=== PATIENT | female | born 1955 | race Caucasian/White ===

== ENCOUNTER → 2018-08-26 | Outpatient (CLI) | payer BC, SELFPAY ==
[2018-08-26 09:09] VITALS: BMI 28.4
[2018-08-28 15:44] LABS: HPV APTIMA, High Risk Negative (Negative)
== END | disposition home or self-care (01) ==
LOC: LABSPEC 12:41
PROVIDERS: Referring Provider Nurse Practitioner Women's Health; Visit Provider Nurse Practitioner Women's Health
DX: N95.2 Postmenopausal atrophic vaginitis (principal)
CPT/HCPCS: 87070; 87205; 87624; 88175; G0145

== ENCOUNTER → 2018-08-29 13:38 | Outpatient (CLI) | payer BC, SELFPAY ==
[2018-08-26 09:09] VITALS: BMI 28.4
--- NOTE | 2018-08-29 13:43 | US_ITS ---
STUDY: ULTRASOUND-PELVIS COMPLETE CLINICAL: Female, 63 years old. Vaginal pain and dryness TECHNIQUE: Transabdominal imaging initially performed with subsequent endovaginal imaging due to incomplete visualization of the endometrial complex and right ovary. COMPARISON: None. FINDINGS: Normal uterine size measuring 7.1 x 4.4 x 4.5 cm in maximal craniocaudal dimension. 7 mm hyperechoic lesion of the upper uterine myometrium compatible with a small fibroid. Normal endometrial thickness measuring 8 mm. Subtle rounded area of slight hyperechogenicity of the uterine fundal endometrial complex measures 4.4 mm. Normal uterine cervix. Right ovary is not visualized. Normal left ovary, measuring 1.4 x 1.3 x 1.2 cm. There are multiple follicles without a dominant cyst. There is no free fluid in the pelvis. Polycystic ovary disease: No. US/Transvaginal Non- IMPRESSION: 1. Endometrial thickening for patient age. Possible 4 mm endometrial hyperechoic lesion. Endometrial sampling is suggested. 2. Subcentimeter uterine fibroid. 3. Nonvisualized right ovary. Electronically Signed: Lucas Rubi MD at 14:03 EDT , Service support ,
--- NOTE | 2018-08-29 13:43 | US_ITS ---
STUDY: ULTRASOUND-PELVIS COMPLETE CLINICAL: Female, 63 years old. Vaginal pain and dryness TECHNIQUE: Transabdominal imaging initially performed with subsequent endovaginal imaging due to incomplete visualization of the endometrial complex and right ovary. COMPARISON: None. FINDINGS: Normal uterine size measuring 7.1 x 4.4 x 4.5 cm in maximal craniocaudal dimension. 7 mm hyperechoic lesion of the upper uterine myometrium compatible with a small fibroid. Normal endometrial thickness measuring 8 mm. Subtle rounded area of slight hyperechogenicity of the uterine fundal endometrial complex measures 4.4 mm. Normal uterine cervix. Right ovary is not visualized. Normal left ovary, measuring 1.4 x 1.3 x 1.2 cm. There are multiple follicles without a dominant cyst. There is no free fluid in the pelvis. Polycystic ovary disease: No. US/Pelvic (Non ) IMPRESSION: 1. Endometrial thickening for patient age. Possible 4 mm endometrial hyperechoic lesion. Endometrial sampling is suggested. 2. Subcentimeter uterine fibroid. 3. Nonvisualized right ovary. Electronically Signed: Lucas Rubi MD at 14:03 EDT , Service support ,
== END ==
PROVIDERS: Referring Provider Nurse Practitioner Women's Health; Visit Provider Nurse Practitioner Women's Health
DX: R10.2 Pelvic and perineal pain (principal)
CPT/HCPCS: 76830; 76856; 93976

== ENCOUNTER → 2018-09-23 | Outpatient (CLI) | payer BC, SELFPAY ==
[2018-09-23 09:34] VITALS: BMI 28.3
--- NOTE | 2018-09-23 13:08 | EMB_PTH ---
PATIENT: VONDA HUMMEL LOC: [facility] #:[id number] AGE/SX: 63/F ROOM: RE09/23/[address]: JERAMIE Stover : 1955 BED: DIS: 09/23/2018 SPEC #: [id number] RECD: 09/23/18 13:08 STATUS: MARGIE RAUL #: [id number] GABE: 09/23/18 13:[address]: Liyah Genao NP DEPT: SURGICAL PATHOLOGY RECD BY: Michael Hunter ENTERED: 09/23/18 14:04 SP TYPE: ENDOM BX/C SYLVESTER DR: No Primary Care Phys Tissues: Endometrium, NOS Procedures: Surgery Specimen Level IV HEADER OPERATION: Endometrial biopsy PRE-OP DIAGNOSIS: Atrophic vaginitis TISSUE SUBMITTED: Endometrial biopsy MICROSCOPIC DIAGNOSIS Endometrial biopsy: Strips of benign endometrial epithelium, consistent with atrophic endometrium. A fragment of benign endometrial polyp with cystic atrophic changes and focal minimal simple cystic endometrial hyperplasia without atypia. VERNA:orly 09/24/18 MICROSCOPIC DESCRIPTION Slides are reviewed. GROSS DESCRIPTION Received is one container labeled with the patient's name and not further designated. The specimen consists of multiple irregular fragments of mi mucoid tissue that in aggregate measure 2.5 x 1 x 0.1 cm. The specimen is totally submitted in one cassette. / VERNA:orly 09/23/18 TC:5 CPT: 80604
== END | disposition home or self-care (01) ==
LOC: LABSPEC 13:22
PROVIDERS: Referring Provider Nurse Practitioner Women's Health; Visit Provider Nurse Practitioner Women's Health
DX: N84.0 Polyp of corpus uteri (principal); N95.2 Postmenopausal atrophic vaginitis
CPT/HCPCS: 88305

== ENCOUNTER → 2018-09-29 | Outpatient (CLI) | payer BC, SELFPAY ==
[2018-08-26 09:09] VITALS: BMI 28.4
[2018-09-23 09:34] VITALS: BMI 28.3
--- NOTE | 2018-09-29 10:07 | BI_ITS ---
MAMMOGRAPHY - BILATERAL SCREENING REASON FOR EXAM: Female, 63 years old. Routine annual screening examination. PERTINENT HISTORY: Daughter with breast cancer. TECHNIQUE: Digital bilateral breast olivia (3D mammographic acquisition) in the CC and MLO projections. 2-D mediolateral oblique (MLO) and craniocaudad (CC) views of both breasts were obtained. CAD: Full Field Digital Mammography with Computer Added Detection was performed. COMPARISON: Comparison is made with prior X examination dated March 17, 2012. FINDINGS: Breast Composition: The breasts are heterogeneously dense, which may obscure small masses. There are no dominant masses or suspicious calcifications. No other significant abnormalities are identified. There has been no significant change since the prior study. BI/SCREEN MAMM (CAD) W/OLIVIA BILAT IMPRESSION: Stable bilateral screening mammogram. Yearly follow-up mammogram recommended. (A) ASSESSMENT CATEGORY: BIRADS Category 1: Negative. A letter regarding these results will be sent to the patient by the facility within 30 days. Approximately 10% of breast cancers are not detected by mammography. A normal mammogram should not delay biopsy of a clinically suspicious abnormality. [id number] Electronically Signed: Ranjeet Mg, at 8:22 EDT , Service support ,
== END | disposition home or self-care (01) ==
LOC: OPBI 10:06
PROVIDERS: Referring Provider Nurse Practitioner Women's Health; Visit Provider Nurse Practitioner Women's Health
DX: Z12.31 Encounter for screening mammogram for malignant neoplasm of breast (principal)
CPT/HCPCS: 77063; 77067

== ENCOUNTER → 2018-10-06 | Outpatient (CLI) | payer BC, SELFPAY ==
[2018-10-06 08:08] VITALS: BMI 28.3
[2018-10-06 09:47] LABS: Absolute Lymphocyte Count 1.45 X10^3/ul (0.83-4.51); Absolute Neutrophil Count 2.1 X10^3/uL (2.0-7.7); Basophil# 0.01 X10^3/uL; Basophil% 0.3 % (0-1); Eosinophil# 0.05 X10^3/uL; Eosinophils% 1.3 % (0-5); Hematocrit 41.6 % (37-47); Hemoglobin 13.9 g/dl (12.0-15.0); Lymphocyte # 1.45 X10^3/ul (4.0); Lymphocyte % 38.3 % (19-41); Mean Corp Hgb Conc 33.4 g/gl (32-36); Mean Corpuscular Hgb 29.3 pg (27.0-32.0); Mean Corpuscular Volume 87.8 fL (81-99); Mean Platelet Vol. 9.7 fl (6.2-12.0); Monocyte# 0.21 X10^3/uL; Monocyte% 5.5 % (0-10); Neutrophil # 2.07 X10^3/uL (2.7-7.7); Neutrophil % 54.6 % (47-70); Platelet Count 222 K/mm3 (150-450); RBC Distribution Width CV 13.7 % (11.6-14.6); RBC Distribution Width SD 43.1 fl (35.1-43.9); Red Blood Count 4.74 M/mm3 (4.2-5.4); White Blood Count 3.8 K/mm3 (4.4-11.0)
[2018-10-06 09:53] LABS: POSITIVE COUNT NO; POSITIVE DIFFERENTIAL NO; POSITIVE MORPHOLOGY NO
[2018-10-06 10:54] LABS: ALB/GLOB Ratio 1.1 RATIO (0.9-2.4); AST(SGOT) 29 U/L (15-37); Alanine Aminotransfer ALT/SGPT 34 U/L (13-56); Albumin, Serum 4.1 g/dL (3.2-5.0); Alkaline Phosphatase 62 U/L (45-117); Anion Gap 7 (5-15); BUN 14 mg/dL (7-18); BUN/Creat Ratio 17.4 RATIO (10-20); Calcium,Total 9.4 mg/dL (8.5-10.1); Chloride 110 mmol/L (98-107); EST Glomerular Filtration Rate 76 mL/min (>60); Est Glom Filt Rate - Afr Amer 92 mL/min (>60); Globulin 3.8 g/dL (2.2-4.2); Glucose 92 mg/dL (74-106); Potassium 3.9 mmol/L (3.5-5.1); Protein, Total 7.9 g/dL (6.4-8.2); Sodium Level 144 mmol/L (136-145)
== END | disposition home or self-care (01) ==
PROVIDERS: Visit Provider Obstetrics & Gynecology
DX: N85.01 Benign endometrial hyperplasia (principal)
CPT/HCPCS: 36415; 80053; 85025; 86850; 86900

== ENCOUNTER 2018-10-16 14:16 | Day surgery (SDC) | payer BC, SELFPAY ==
[2018-09-23 09:34] VITALS: BMI 28.3
[2018-10-06 08:08] VITALS: BMI 28.3
--- NOTE | 2018-10-14 20:28 | PCM.HPOB.BLA ---
- Problem List (1) Simple endometrial hyperplasia without atypia Status: Acute Comment: d and c hysteroscopy (2) Thickened endometrium Status: Acute (3) Cystocele and rectocele with incomplete uterovaginal prolapse Status: Acute (4) Urethral caruncle Status: Acute (5) Atrophic vaginitis Status: Acute History and Physical Date of Admission: 10/16/18 Vital Signs 10/06/18 Body Mass Index (BMI) 28.3 10/06/18 Height 5 ft 5 in 10/06/18 Weight: 173 lb 10/06/18 Body Mass Index (BMI) 28.8 10/06/18 Blood Pressure 132/82 H Intake Visit Reasons: D&C pre op Chief Complaint: pre op D&C Mass Spectrometry Specialist Required: No Is patient in pain?: No Allergies No Known Allergies Allergy (Verified 10/06/18 08:07) Medications adrenal supplement PO 08/26/18 [History Confirmed 10/06/18] cholecalciferol (vitamin D3) 2,000 unit capsule 2,000 unit PO DAILY 08/26/18 [History Confirmed 10/06/18] estradiol 0.01% (0.1 mg/gram) vaginal cream See Rx Instructions VAGINAL .COMPLEX #42.5 g 08/26/18 [Rx Confirmed 10/06/18] ibuprofen 200 mg capsule 200 mg PO TID-QID PRN 08/26/18 [History Confirmed 10/06/18] pyridoxine (vitamin B6) 50 mg capsule 50 mg PO DAILY 08/26/18 [History Confirmed 10/06/18] thyroid supplement PO 08/26/18 [History Confirmed 10/06/18] Is last menstrual period known: No Post menopausal: Yes Patient : No : No PFSH Surgical History vericose vein surgery (Acute) Family History Mother Hypertension Father CVA (cerebral vascular accident) Social History adopted: No number of children: 3 current occupational status: retired sexually active: Yes Smoking Status: Never smoker alcohol intake: current alcohol intake frequency: holidays/special occasions only substance use type: does not use well-balanced diet: daily or most days caffeine: Yes Type: coffee Number of servings: 1 what type of physical activity do you participate in: walking frequency: 3-4 times per week seatbelt use: always do you feel safe at home: Yes additional social history: HPI D&C pre op: Details: VONDA HUMMEL is a 63 year old who presents for preoperative visit. she has some pelvic prolapse and also had endometrial hyperplasia. Female Reproductive History Questions: Metorrhagia: No, Sexually active: Yes Pregancy History 4 Elective abortions 0 Hx Para 3 Spontaneous abortions 1 Hx # Term Pregnancies 3 Ectopic pregnancies 0 Hx # Pregnancies 0 Multiple births 0 # of living children 3 ROS Const Constitutional: Denies fatigue, fever(s), headache(s), increased appetite, poor appetite, weight gain or weight loss ENT ENT: Denies dizziness or dry mouth Cardio Card: Denies chest pain Resp Resp: Denies cough or dyspnea GI GI: Reports as per HPI; denies abdominal pain, constipation, nausea or vomiting : Reports as per HPI; denies difficulty urinating, painful urination, pelvic pain, urinary frequency, urinary incontinence, urinary hesitancy, urinary urgency, vaginal discharge, vaginal dryness, vaginal odor or vaginal itching Musc Musc: Denies joint pain, back pain or muscle weakness Skin Skin/Breast: Reports hair loss; denies change in hair, dry skin, breast lump, breast pain or breast skin changes Neuro Neuro: Denies dizziness Psych Psych: Denies anxiety or depression Endo Endo: Denies cold intolerance, excessive sweating, heat intolerance or increased thirst Sacha/Lymph Hematologic/Lymphatic: Denies easy bleeding, Denies easy bruising, Denies enlarged lymph nodes Exam Const General: cooperative, healthy appearing, comfortable, no acute distress, well developed Nutritional Appearance: average body habitus Orientation: alert [facility] Head: normal to inspection, normocephalic Ears: hearing grossly normal bilaterally, external ears normal Nose: external nose normal, nares normal Face and sinus: normal facial exam Neck Neck: normal visual inspection, no lymphadenopathy, trachea midline Thyroid: thyroid normal Chest Chest palpation & inspection: normal inspection of the chest Resp Effort & Inspection: normal respiratory effort Auscultation: clear to auscultation bilaterally Cardio Rate: regular rate Rhythm: regular rhythm Heart Sounds: S1 normal, S2 normal GI Inspection: normal to inspection, non-distended Palpation: soft, no hepatosplenomegaly Musc Cervical Spine: other Other: gross motor intact no deficits, full bilateral strength Skin General: no rashes or lesions noted Neuro General: alert, awake, moves all extremities, no focal motor deficits Motor: muscle tone normal throughout Extrem General: normal to inspection, no pedal edema Psych Appearance: grossly normal Mental Status: mental status grossly normal Affect: normal affect Speech and Movement: speech and movement normal Assessment & Plan Problems 1. Simple endometrial hyperplasia without atypia N85.01 d and c hysteroscopy 2. Cystocele and rectocele with incomplete uterovaginal prolapse N81.2 Plan discussed surgical risks including risks of anesthesia, infection, bleeding, injury to bowel, bladder or blood vessels, and patient wishes to proceed with surgery. Orders Orders: Type & Screen Today CBC W/Diff, Automated Today N85.01 Comprehensive Metabolic Profil Today N85.01 Coding Level of Care Code No Charge Diagnoses Simple endometrial hyperplasia without atypia N85.01 Cystocele and rectocele with incomplete uterovaginal prolapse N81.2 UPDATE- I have seen the patient and performed any clinically relevant updates to the history and physical exam. Veronika Forte MD
[2018-10-16] VITALS (7 sets, daily range): BP systolic 105–178; BP diastolic 60–90; PULSE 67–79; RESP 16; TEMP 36.3; O2SAT 95–99; BMI 29.2
--- NOTE | 2018-10-16 15:24 | EKG12_ITS ---
Test Reason : PRE-OPERATIVE Blood Pressure : / mmHG Vent. Rate : 064 BPM Atrial Rate : 064 BPM P-R Int : 130 ms QRS Dur : 094 ms QT Int : 446 ms P-R-T Axes : 058 006 050 degrees QTc Int : 460 ms Normal sinus rhythm Lateral infarct , age undetermined , cannot be excluded Abnormal ECG Confirmed by ALY SIEGEL, LINUS ([id number]), fan mail editor JESE ANGEL ([id number]) on 10/20/2018 3:13:06 PM Referred By: Veroniak Forte Confirmed By:LINUS LU MD
--- NOTE | 2018-10-16 16:10 | PCM.OPRPT ---
Problem List (1) Simple endometrial hyperplasia without atypia Status: Acute Comment: d and c hysteroscopy (2) Thickened endometrium Status: Acute (3) Cystocele and rectocele with incomplete uterovaginal prolapse Status: Acute (4) Urethral caruncle Status: Acute (5) Atrophic vaginitis Status: Acute Report of Operation Date of Procedure: 10/16/18 Pre-Operative Diagnosis: postmenopausal bleeding Post-Operative Diagnosis: same Surgery/Procedure Performed:: d and c hysteroscopy polypectomy Description of Surgical Findings:: two endometrial polyps Type of Anesthesia:: Local MAC Special Medications: none Specimen's removed: emc and polyps Drains: none Estimated Blood Loss (mL): none Fluids Replaced: crystalloid Description of Procedure: Patient was prepped and draped in a normal sterile fashion under MAC anesthesia. A weighted speculum was placed in the vagina and the anterior lip of the cervix was grasped with a single-tooth tenaculum. A paracervical block was placed with 1% lidocaine. Cervix was progressively dilated to allow passage of a 5 mm hysteroscope. The lining was fully visualized and noted to have 2 large endometrial polyps that were removed with polyp forceps. Uterine sounded to 9 cm. Curettage was performed and moderate amount of tissue was removed, sent to pathology. All instruments were removed from the vagina and excellent hemostasis was noted. Patient was awoken and taken to recovery in stable condition. Grafts/Implants Used: none - Complications none
--- NOTE | 2018-10-16 16:12 | DCINST_ITS ---
Discharge Diet: No Restrictions Discharge Activity: Return to Normal Activity, May Shower, May Take a Tub Bath Allergies/Adverse Reactions: Allergies No Known Allergies Allergy (Verified 10/08/18 15:45) Medications to take at Discharge adrenal supplement 1 tab PO DAILY 08/26/18 cholecalciferol (vitamin D3) 2,000 unit capsule 2,000 unit PO DAILY 08/26/18 pyridoxine (vitamin B6) 50 mg capsule 50 mg PO DAILY 08/26/18 thyroid supplement 1 tab PO DAILY 08/26/18 Primary Care Physician: Care Physician,No Primary [Primary Care Provider] - Test Results: Test results from this visit will be discussed in further detail at your follow- up appointment, if applicable. Please Follow Up With: Veronika Forte MD - [phone]
--- NOTE | 2018-10-16 16:25 | EMB_PTH ---
PATIENT: VONDA HUMMEL LOC: [facility] [place] U#:[id number] AGE/SX: 63/F ROOM: RE10/16/[address]: Dr. Veronika Forte MD : 1955 BED: DIS: 10/16/2018 SPEC #: [id number] RECD: 10/17/18 08:06 STATUS: MARGIE RAUL #: [id number] GABE: 10/16/18 16:[address]: Veronika Forte DEPT: SURGICAL PATHOLOGY RECD BY: Chase Franz ENTERED: 10/17/18 14:26 SP TYPE: ENDOM BX/C SYLVESTER DR: No Primary Care Phys Tissues: Endometrium, NOS Procedures: Surgery Specimen Level IV HEADER OPERATION: Hysteroscopy, dilation and curettage PRE-OP DIAGNOSIS: Postmenopausal bleeding TISSUE SUBMITTED: Endometrial curettings and polyp MICROSCOPIC DIAGNOSIS Endometrial curettings and polyp, biopsy: Polypoid fragments of benign endometrium with simple hyperplasia without atypia. AM:orly 10/20/18 MICROSCOPIC DESCRIPTION Slides are reviewed. GROSS DESCRIPTION Received in fixative is one container labeled with the patient's name and designated endometrial curettings and polyp. The specimen consists of multiple irregular fragments of light mi soft tissue that in aggregate measure 2.5 x 1.8 x 0.1 cm. The specimen is totally submitted in one cassette. / AM:orly 10/17/18 TC:5 CPT: 28559
== END 2018-10-16 17:10 | disposition home or self-care (01) ==
LOC: SDC 14:16 → AC 14:37
PROVIDERS: Referring Provider Obstetrics & Gynecology; Visit Provider Obstetrics & Gynecology
PROC: 0UDB8ZZ Extraction of Endometrium, Via Natural or Artificial Opening Endoscopic (ICD-10-PCS; CPT 58558; principal; 2018-10-16 16:15)
DX: N85.01 Benign endometrial hyperplasia (principal); N95.0 Postmenopausal bleeding; R94.31 Abnormal electrocardiogram [ECG] [EKG]; E07.9 Disorder of thyroid, unspecified; Z79.899 Other long term (current) drug therapy
CPT/HCPCS: 00952; 58558; 88305; 93005; J7120

== ENCOUNTER → 2019-05-05 08:01 | Outpatient (CLI) | payer BC, SELFPAY ==
[2019-05-05 09:16] VITALS: BMI 29.2
--- NOTE | 2019-05-05 16:30 | EMB_PTH ---
PATIENT: VONDA HUMMEL LOC: [facility] U#:[id number] AGE/SX: 70/F ROOM: RE05/05/[address]: JERAMIE Stover : 1955 BED: DIS: SPEC #: [id number] RECD: 05/05/19 17:35 STATUS: MARGIE RAUL #: [id number] GABE: 05/05/19 16:[address]: Liyah Genao NP DEPT: SURGICAL PATHOLOGY RECD BY: Michael Hunter ENTERED: 05/06/19 11:48 SP TYPE: ENDOM BX/C SYLVESTER DR: Светлана Primary Care Phys Tissues: Endometrium, NOS Procedures: Surgery Specimen Level IV HEADER OPERATION: Endometrial biopsy PRE-OP DIAGNOSIS: Abnormal uterine bleeding TISSUE SUBMITTED: Endometrial lining MICROSCOPIC DIAGNOSIS Endometrial biopsy: Strips of benign endometrial epithelium, consistent with atrophic endometrium. SJ:orly 05/07/19 MICROSCOPIC DESCRIPTION Slides are reviewed. GROSS DESCRIPTION Received is one container labeled with the patient's name and not further designated. The specimen consists of a scant amount of soft tissue. The specimen is totally submitted for cell block preparation. / SJ:orly 05/06/19 TC:4 CPT: [id number]
== END ==
PROVIDERS: Referring Provider Nurse Practitioner Women's Health; Visit Provider Nurse Practitioner Women's Health
DX: N93.9 Abnormal uterine and vaginal bleeding, unspecified (principal)
CPT/HCPCS: 88305

== ENCOUNTER → 2020-01-08 | Outpatient (CLI) | payer MEDICARE, SELFPAY ==
--- NOTE | 2020-01-08 13:00 | EMB_PTH ---
PATIENT: VONDA HUMMEL LOC: [facility] U#:[id number] AGE/SX: 64/F ROOM: RE01/08/[address]: Dr. Jessica Paulino MD : 1955 BED: DIS: 01/08/2020 SPEC #: [id number] RECD: 01/08/20 14:53 STATUS: MARGIE RERemberto #: [id number] GABE: 01/08/20 13:[address]: Jessica Paulino DEPT: SURGICAL PATHOLOGY RECD BY: Chase Franz ENTERED: 01/11/20 07:49 SP TYPE: ENDOM BX/C SYLVESTER DR: No Primary Care Phys Tissues: Endometrium, NOS Procedures: Surgery Specimen Level IV HEADER OPERATION: Endometrial biopsy PRE-OP DIAGNOSIS: Simple endometrial hyperplasia without atypia TISSUE SUBMITTED: Endometrial lining MICROSCOPIC DIAGNOSIS Endometrium, biopsy: Strips of benign superficial glandular mucosa. No evidence of hyperplasia. Fragment of endocervix with mild chronic inflammation. AM:orly 01/12/20 MICROSCOPIC DESCRIPTION Slides are reviewed. GROSS DESCRIPTION Received is one container labeled with the patient's name and not further designated. The specimen consists of multiple fragments of hemorrhagic soft tissue that in aggregate measure 0.5 x 0.5 x 0.1 cm. The specimen is totally submitted in one cassette. / SJ:orly 01/11/20 TC:5 CPT: 70470
[2020-01-08 13:02] VITALS: BMI 29.2
== END | disposition home or self-care (01) ==
LOC: LABSPEC 15:02
PROVIDERS: Referring Provider Obstetrics & Gynecology; Visit Provider Obstetrics & Gynecology
DX: N85.01 Benign endometrial hyperplasia (principal)
CPT/HCPCS: 88305

== ENCOUNTER → 2020-10-04 09:04 | Outpatient (CLI) | payer MEDICARE, SELFPAY ==
[2020-01-08 13:02] VITALS: BMI 29.2
--- NOTE | 2020-10-04 09:07 | BD_ITS ---
STUDY: DUAL ENERGY X-RAY ABSORPTIOMETRY / DXA REASON FOR EXAM: Female, 65 years old. Menopause TECHNIQUE: Bone Mineral Density (BMD) measurements of lumbar spine and bilateral hips were obtained. COMPARISON: None. FINDINGS: Lumbar Spine (L1-L4): g/cm2 (1.255) / T-score (0.6) / Z-score (2.2) Findings are suggestive of normal bone density with a low fracture risk. Left Femur Total: g/cm2 (1.109) / T-score (0.8) / Z-score (2.1) Left Femoral Neck: g/cm2 (0.928) / T-score (-0.8) / Z-score (0.7) Right Femur Total: g/cm2 (1.113) / T-score (0.8) / Z-score (2.1) Right Femoral Neck: g/cm2 (0.982) / T-score (-0.4) / Z-score (1.1) BD/Dexa Bone Density Study IMPRESSION: The patient is considered normal as outlined below according to World Anthony Organization (WHO) criteria with a low fracture risk. Reference Information: The T-score is the number of standard deviations above or below the standard which is normal for young adults at their peak bone mineral density. The World Health Organization (WHO) interprets the T-scores as follows: Above -1 Normal bone density Between -1 and -2.5 Osteopenia Equal to / or below -2.5 Osteoporosis As a practical clinical guideline, osteopenia may be graded as follows: Mild -1 through -1.5 Moderate -1.6 through -2.0 Severe -2.1 through -2.4 The Z-score is the number of standard deviations above or below age-matched controls. A Z-score of less than -1.5 would be considered abnormal. References: 1. NIH Osteoporosis and Related Bone Diseases www osteo.org 2. International Society for Clinical Densitometry www iscd.org 3. National Osteoporosis Foundation www nof.org Electronically Signed: Ranjeet Mg MD at 12:34 EDT , Service support ,
== END ==
PROVIDERS: PCP Internal Medicine; Referring Provider Obstetrics & Gynecology; Visit Provider Obstetrics & Gynecology
DX: Z78.0 Asymptomatic menopausal state (principal)
CPT/HCPCS: 77080

== ENCOUNTER → 2022-05-02 | Outpatient (CLI) | payer MEDICARE, SELFPAY ==
--- NOTE | 2022-05-02 13:13 | BI_ITS ---
MAMMOGRAPHY - BILATERAL SCREENING REASON FOR EXAM: Female, 67 years old. Routine annual screening examination. PERTINENT HISTORY: Daughter with breast cancer. TECHNIQUE: Digital bilateral breast olivia (3D mammographic acquisition) in the CC and MLO projections. 2-D mediolateral oblique (MLO) and craniocaudad (CC) views of both breasts were obtained. CAD: Full Field Digital Mammography with Computer Added Detection was performed. COMPARISON: Comparison is made with prior study dated 09/29/2018. FINDINGS: Breast Composition: The breasts are heterogeneously dense, which may obscure small masses. There are no dominant masses or suspicious calcifications. Stable scattered bilateral macrocalcifications. No focal clusters seen. No other significant abnormalities are identified. There has been no significant change since the prior study. BI/SCRN MAMM (CAD)W/OLIVIA BILAT IMPRESSION: Stable bilateral screening mammogram. Yearly follow-up mammogram recommended. (A) ASSESSMENT CATEGORY: BIRADS Category 2: Benign. A letter regarding these results will be sent to the patient by the facility within 30 days. Approximately 10% of breast cancers are not detected by mammography. A normal mammogram should not delay biopsy of a clinically suspicious abnormality. [id number] Electronically Signed: Ranjeet Mg MD at 14:53 EST ,
--- NOTE | 2022-05-02 13:13 | US_ITS ---
INDICATION: F/U HYPERP EXAMINATION: US Pelvis Non OB Complete With Transvaginal Imaging TECHNIQUE: Transabdominal and transvaginal pelvic ultrasound was performed. Grayscale, spectral waveform, and color flow Doppler evaluation of the adnexa. COMPARISON: 08/29/2018. FINDINGS: UTERUS: Anteverted. The uterus measures 7.1 x 4.6 x 3.5 cm. It is heterogneous, however, there is no uterine mass. The endometrial stripe measures 2.4 mm in AP diameter which is within normal limits for a postmenopausal woman. RIGHT OVARY: Not visualized. LEFT OVARY: Measures 2.4 x 2.1 x 1.4 cm. Non-enlarged, normal echogenicity. There is normal arterial inflow and venous outflow present in the left ovary. FREE FLUID: None. US/Pelvic (Non ) IMPRESSION: Nonvisualization of the right ovary. Otherwise normal left ovary and uterus with normal endometrial thickness. Electronically Signed: Gio Frye MD at 18:31 EST ,
== END | disposition home or self-care (01) ==
LOC: OPUS 13:10
PROVIDERS: Visit Provider Obstetrics & Gynecology
DX: Z12.31 Encounter for screening mammogram for malignant neoplasm of breast (principal); Z80.3 Family history of malignant neoplasm of breast
CPT/HCPCS: 76830; 76856; 77063; 77067

== ENCOUNTER → 2023-05-14 | Outpatient (CLI) | payer MEDICARE, SELFPAY ==
--- NOTE | 2023-05-14 13:07 | US_ITS ---
STUDY: ULTRASOUND OF THE FEMALE PELVIS - COMPLETE REASON FOR EXAM: Female, 68 years old. Abnormal bleeding LMP: Unknown. TECHNIQUE: Transabdominal and Transvaginal TECHNICAL QUALITY: Adequate. COMPARISON: 05/02/2022 FINDINGS: The uterus is anteverted and is in a midline position. The uterus measures 7.9 x 4.4 x 3.7 cm. Normal uterine cervix. The endometrium measures 3.7 mm in thickness, and is hyperechoic. There is a 1.0 x 0.8 x 0.6 cm likely endometrial polyp There is no demonstrated myometrial mass. I.U.D. - The patient does not have an I.U.D. The right ovary is visualized. The right ovary measures 1.9 x 1.0 x 0.9 cm. There is no right ovarian cyst or ovarian mass. There is no visualized right adnexal mass or complex lesion. There is normal arterial and normal venous vascularity. The left ovary is visualized. The left ovary measures 1.8 x 1.1 x 1.2 cm. There is no left ovarian cyst or ovarian mass. There is no visualized left adnexal mass or complex lesion. There is normal arterial and normal venous vascularity. There is no fluid in the cul-de-sac. The bladder distends normally with estimated capacity of 473. There is a 1.5 x 1.6 x 1.2 cm well-defined nodule in the posterior right bladder wall likely representing a small bladder polyp. Urologic consultation recommended US/Pelvic (Non ) IMPRESSION: Normal endometrial thickness, but there is evidence of a hyperechoic 1.0 cm likely endometrial polyp. No suspicious adnexal mass or free fluid Small well-defined 1.5 x 1.6 x 1.2 cm mass within the posterior right bladder not present on the previous study, likely a polyp but urologic consultation recommended, this needs further evaluation with direct visualization or with CT or MRI. Electronically Signed: Dustin Ross MD at 10:19 EST ,
--- NOTE | 2023-05-14 13:07 | BI_ITS ---
MAMMOGRAPHY - BILATERAL SCREENING 3-D TOMOSYNTHESIS REASON FOR EXAM: Female, 68 years old. Annual screening mammogram. PERTINENT HISTORY: History of breast cancer in daughter, age not identified. TECHNIQUE: 2-D mammograms and 3-D Tomosynthesis of the breast (s) were performed. CAD was performed. COMPARISON: May 02, 2022, September 29, 2018 FINDINGS: Heterogeneously dense fibroglandular tissue which may obscure small masses. Stable normal lymph nodes and scattered benign calcifications bilaterally. No dominant masses, suspicious microcalcifications, asymmetry, skin thickening or nipple retraction. BI/SCRN MAMM (CAD)W/OLIVIA BILAT IMPRESSION: No mammographic signs of malignancy. Yearly follow-up bilateral screening mammogram recommended. ASSESSMENT CATEGORY: BIRADS Category 2: Benign. A letter regarding these results will be sent to the patient by the facility within 30 days. FOLLOW UP RECOMMENDATION: Yearly follow up mammogram recommended. (A) Approximately 10% of breast cancers are not detected by mammography. A normal mammogram should not delay biopsy of a clinically suspicious abnormality. Electronically Signed: Jose Thomson MD at 10:33 EST ,
== END | disposition home or self-care (01) ==
PROVIDERS: Referring Provider Obstetrics & Gynecology; Visit Provider Obstetrics & Gynecology
DX: Z12.31 Encounter for screening mammogram for malignant neoplasm of breast (principal); N85.01 Benign endometrial hyperplasia; R93.89 Abnormal findings on diagnostic imaging of other specified body structures
CPT/HCPCS: 76830; 76856; 77063; 77067

== ENCOUNTER → 2023-05-29 | Outpatient (CLI) | payer MEDICARE, SELFPAY ==
[2023-05-29 14:00] LABS: Absolute Lymphocyte Count 1.93 X10^3/uL (0.83-4.51); Absolute Neutrophil Count 2.8 X10^3/uL (2.0-7.7); Basophil# 0.03 X10^3/uL; Basophil% 0.6 % (0-1); Eosinophil# 0.08 X10^3/uL; Eosinophils% 1.5 % (0-5); Hematocrit 42.6 % (37-47); Lymphocyte # 1.93 X10^3/ul (0.83-4.51); Lymphocyte % 36.8 % (19-41); Mean Corp Hgb Conc 32.9 g/dL (32-36); Mean Corpuscular Hgb 29.3 pg (27.0-32.0); Mean Corpuscular Volume 89.1 fL (81-99); Mean Platelet Vol. 9.8 fl (6.2-12.0); Monocyte# 0.36 X10^3/uL; Monocyte% 6.9 % (0-10); NRBC Flagged by Analyzer 0 % (0-5); Neutrophil # 2.84 X10^3/uL (2.7-7.7); Platelet Count 261 K/mm3 (150-450); RBC Distribution Width CV 13.4 % (11.6-14.6); Red Blood Count 4.78 M/mm3 (4.2-5.4); White Blood Count 5.3 K/mm3 (4.4-11.0)
== END | disposition home or self-care (01) ==
LOC: PAVLAB 13:33
PROVIDERS: Referring Provider Obstetrics & Gynecology; Visit Provider Obstetrics & Gynecology
DX: N85.01 Benign endometrial hyperplasia (principal); N36.2 Urethral caruncle
CPT/HCPCS: 36415; 85025; 86850; 86900; 86901

== ENCOUNTER 2023-06-11 09:38 | Day surgery (SDC) | payer MEDICARE, SELFPAY ==
[2023-06-11 10:00] VITALS: BP 140/75; PULSE 78; RESP 16; TEMP 36.6; O2SAT 97; BMI 29.6
--- OUTSIDE RECORDS SUMMARY | 2023-06-11 10:02 | XMS RPT_ITS | CCD ---
Author Name Unknown Address [address] [place] [address] Organization [facility] Care Team Providers Care Human Service Coordinator Name Role Phone ARLYN SOSA (PA-C) Unavailable Unavai lable MARTINEZ, SYL Unavailable Unavailable MARTINEZ, SYL Unavailable Unavailable MARTINEZ, SYL Unavailable Unavailable MARTINEZ, SYL Unavailable Unavailable PROVIDER, UNKNOWN Unavailable Unavailable PROVIDER, UNKNOWN Unavailable Unavailable No, PCP Unavailable Unavailable Siri Augustine Unavailable Shaquille Simons Unavailable Gravius, Olivia Unavailable Unavailable AUDI Strauss Unavailable Unavailable Siri Augustine DO Unavailable Dr. Shaquille Simons Unavailable [phone] Lionel WILLETT, Peg Unavailable Unavailable Skyeesa Belinda ZAIDI Unavailable Unavailable Unavailable Aide Garcia LPN Unavailable Unavailable Gravius RED, Olivia Unavailable Unavailable Martinez, Syl Primary Care Provider Unavailabl e Miranda Almeida Primary Care Provider Miranda Almeida Primary Care Provider Miranda Almeida Primary Care Provider MIRANDA ALMEIDA Primary Care Unavailable MIRANDA ALMEIDA Attending Unavailable MIRANDA ALMEIDA Referring Unavailable Medications Completed/Discontinued Medications Medication Drug Class(es) Dates Sig (Normalized) Sig (Original) adrenal LF (15 sources) adrenal LF 2 courtney ly Active black current seed oil (15 sources) black current se ed oil 1d Active escitalopram 10 mg oral tablet (5 sources) Serotonin Reuptake Inhibitor Start: 10-21-2020 take 1 tablet by mouth once daily at bedtime Escitalopram Oxalate 10 MG Oral Tablet 1 (one) Tablet qhs for 0 days Quantity: 30 {Tablet} Refills: 2 Ordered: 21-Oct-2020 Aide Garcia LPN Start : 21-Oct-2020 Active hair renew formula (15 sources) hair renew formu la Active nitrofurantoin, macrocrystals 25 mg / nitrofurantoin, monohydrate 75 mg oral capsule (7 sources) Nitrofuran Antibacterial Start: 09-05-2020 End: 09-12-2020 take 1 capsule by mouth twice daily Macrobid 100 MG Oral Capsule 1 (one) Capsule bid for 7 days Quantity: 14 {Capsule} Refills: 0 Ordered: 05-Sep-2020 Amie DEJUANBelinda Start : 05-Sep-2020 End : 12-Sep-2020 Inactive Comments: or generic Problems Active Problems Problem Classification Problem Date Documented Da te Episodic/Chronic Anxiety disorders (16 sources) Impaired cognition; Translations: [Brain fog] 09-05-2020 Chronic Diabetes mellitus without complication (4 sources) Hyperglycemia; Translations: [Hyperglycemia] 10-26-2020 Episodic Disorders of lipid metabolism (20 sources) Hyperlipidemia; Translations: [Hyperlipidemia] 12-16-2019 Chronic Past or Other Problems Problem Classification Problem Date Documented Da te Episodic/Chronic Genitourinary symptoms and ill-defined conditions (7 sources) Urinary symptoms ; Translations: [UTI symptoms] Resolved: 10-21-2020 09-05-2020 Episodic Headache; including migraine (9 sources) Headache; including migraine Unclassified (15 sources) Elevated blood pressure reading Unclassified (15 sources) Pregnancies (); Translations: [Pregnancies ()] 12-16-2019 Results Test Name Value Interpretation Reference Range Facil ity Vital Signs Date Time Vital Sign Value Performing Clinician Facility 10-26-2020 08:14-0400 Body height 162.56 cm Aide Garcia 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 [facility] Work Phone: 10-26-2020 08:14-0400 Body mass index (BMI) [Ratio] 29.7 kg/m2 Aide [facility] Work Phone: 10-26-2020 08:14-0400 Body surface area [facility] Work Phone: 10-26-2020 08:14-0400 Body weight 78.47 kg Aide [facility] Work Phone: 10-21-2020 [id number] Body height 162.56 cm Olivia Ramirez [facility] Work Phone: 10-21-2020 08:03-0400 Body mass index (BMI) [Ratio] 29.7 kg/m2 Olivia Ramirez [facility] Work Phone: 10-21-2020 [id number] Body surface area Derived from formula 1.84 m2 Olivia Ramirez [facility] Work Phone: 10-21-2020 08:03-0400 Body temperature 97.3 [degF] Olivia Ramirez [facility]; [facility] Work Phone: Encounters Encounter Date Encounter Type Care Provider Facility Start: 11-22-2022 End: 11-23-2022 ambulatory [employer] [facility] Start: 11-22-2022 End: 11-22-2022 Subsequent hospital visit by physician Miranda Lamsdon Work Phone: [facility] Procedures Date Procedure Procedure Detail Performing Clinician Start: 05-02-2022 Mammography [employer] Work Phone: Start: 11-07-2021 Comprehensive metabolic panel [employer] Work Phone: Start: 11-07-2021 Lipid panel [employer] Work Phone: Start: 11-07-2021 Radex spine cervical 4 or 5 views [employer] Work Phone: Start: 01-30-2021 End: 01-30-2021 Arm Rest Builder Office Visit Report Comments: See Note; NOTES: [facility] [address] [place], [place] [address] OFFICE VISIT Date of Service: 01/30/21 MR#: [id number] Acct: [id number] Name: VONDA HUMMEL Rep #: [id number] : 1955 Provider: Dr. Jessica valle MD Age/Sex: 65/F Location: 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 Chlorite Operator Required: No Is patient in pain?: No Allergies No Known Allergies Allergy (Verified 01/30/21 10:09) Medications adrenal supplement 1 tab PO DAILY 08/26/18 [History Confirmed 01/30/21] cholecalciferol (vitamin D3) 50 mcg (2,000 unit) capsule 2,000 unit PO DAILY 08/26/18 [History Confirmed 01/30/21] thyroid supplement 1 tab PO DAILY 08/26/18 [History Confirmed 01/30/21] progesterone micronized 100 mg capsule 100 mg PO QPM #90 cap 01/30/21 [Rx Confirmed 01/30/21] zinc 50 mg tablet 50 mg PO DAILY 01/30/21 [History Confirmed 01/30/21] Is last menstrual period known: No Post menopausal: Yes Patient : No : No PFSH Medical History Status post hysteroscopy ( 10/16/18) Surgical History Varicose vein of leg Family History Mother Hypertension Father CVA (cerebral vascular accident) Social History (Updated 01/30/21 @ 10:09 by Miranda Campos) adopted: No number of children: 3 current occupational status: retired sexually active: Yes Smoking Status: Never smoker alcohol intake: current alcohol intake frequency: holidays/special occasions only substance use type: does not use well-balanced diet: daily or most days caffeine: Yes Type: coffee Number of servings: 1 what type of physical activity do you participate in: walking frequency: 1-2 times per week seatbelt use: always do you feel safe at home: Yes additional social history: Pregancy History 4 Elective abortions 0 Hx Para 3 Spontaneous abortions 1 Hx # Term Pregnancies 3 Ectopic pregnancies 0 Hx # Pregnancies 0 Multiple births 0 # of living children 3 HPI Encounter for routine gynecological examination: Details: VONDA HUMMEL is a 65 year old who presents for annual exam. Patient on progesterone to decrease chances of recurrence of endometrial hyperplasia. Tolerating well. Denies vaginal bleeding. Does not have hot flashes, but has intermittent night sweats. Reports vaginal dryness, but not interested in restarting vaginal estrogen after having endometrial hyperplasia. Using topical lubricants and vaginal moisturizers. Last PAP: 2019 History of abnormal PAP: na Last mammogram: 2019 History of abnormal mammogram: denies Colon cancer screening: up to date Other preventative health care screenings: up to date on DEXA Details: VONDA HUMMEL is a 65 year old who presents for annual exam. Last PAP: [] History of abnormal PAP: [] Last mammogram: [] History of abnormal mammogram: [] Colon cancer screening: [] Other preventative health care screenings: [] Female Reproductive History Menopausal Symptoms: No hot flashes, Yes night sweats, No weight change, No mood changes, No sleep problems and No change in libido ROS Const Constitutional: Reports night sweats; Denies difficulty sleeping, fatigue, fever(s), weight gain or weight loss GI GI: Denies change in bowel habits, constipation or fecal incontinence : Denies hematuria, hot flashes, nipple discharge, nocturia, pelvic pain, post void dribbling, prolapse symptoms, sexual dysfunction, urinary incontinence, urinary hesitancy, urinary urgency, vaginal discharge, vaginal dryness, vaginal odor or vaginal pruritus Skin Skin/Breast: Denies breast mass, breast pain, breast skin changes or nipple discharge Psych Psych: Denies anxiety, change in libido or depression Exam Const General: cooperative, healthy appearing, comfortable, no acute distress, well developed and well groomed Nutritional Appearance: average body habitus and well nourished Orientation: alert, awake and oriented x3 HENMT Head: normal to inspection, normocephalic and atraumatic Eyes Pupils: PERRL EOM: EOM intact bilaterally Neck Neck: normal visual inspection Neck mass: No Thyroid: thyroid normal, symmetrical, not diffusely enlarged, not firm, no masses and nontender Lymphatic: no lymphadenopathy noted Chest Chest palpation inspection: normal inspection of the chest Breast inspection: normal inspection of the breasts and normal inspection of the axillae Breast palpation: normal palpation of the breasts, normal palpation of the axillae and no axillary lymphadenopathy Resp Effort Inspection: normal respiratory effort, able to speak in complete sentences and symmetric chest movement Cardio Rate: regular rate GI Inspection: normal to inspection and non-distended Palpation: soft, no guarding, no masses, not rigid and nontender General: bladder normal to palpation External Female Exam: normal external appearance, normal appearance of the urethra, no tenderness externally, no lesions, No urethral discharge, No lesion and No tender Urethra: normal appearance of the urethra, no lesions and nontender Speculum Exam - Vagina: normal appearance of the vagina, normal vaginal discharge, normal vaginal discharge, vagina not atrophic, no cysts, not erythematous, no lacerations, no lesions, no masses, no swelling and nontender Speculum Exam - Cervix: normal appearance of the cervix, no cervical discharge, no lesions, no masses, no nabothian cysts and nontender Bimanual Exam- Vagina Uterus: normal bimanual exam, normal palpation, uterine size normal, bladder normal to palpation, uterine shape normal, No tender, uterine mobility normal, consistency normal, normal palpation and non-tender Bimanual Exam- Adnexa, other: normal adnexae, adnexae mobile, no masses, normal, non-tender, no masses noted and apex supported Pelvic Support: normal, no cystocele, no rectocele, no enterocele and apex supported Skin General: no rashes or lesions noted, elasticity normal and turgor normal Neuro General: patient alert, patient awake, patient oriented x3 and CN's II-XI intact bilaterally Cranial Nerves: CN's II-XI intact bilaterally, PERRL, accommodation normal, EOM intact bilaterally and no nystagmus Cognition: normal cognition Speech: speech normal Gait: normal gait Psych Appearance: grossly normal and well kempt Mental Status: mental status grossly normal Mood: congruent mood Affect: normal affect Speech and Movement: speech and movement normal Attitude: cooperative Thought Process: normal Thought Content: normal Judgment: judgment good Coding Level of Care Code Off vis,est,prev 65+yrs Diagnoses Encounter for routine gynecological examination Z01.411 Gynecological examination findings: abnormal findings PRESENT Assessment and Plan Assessment and Plan (1) Encounter for routine gynecological examination: Qualifiers: Gynecological examination findings: abnormal findings PRESENT Qualified Code(s): Z01.411 - Encounter for gynecological examination (general) (routine) with abnormal findings Plan - Dr. Jessica Paulino MD: Normal breast and pelvic exams Nl pap 2018 - no indication for future paps Discussed yearly vs biennial mammograms - risks and benefits discussed, likely plans for every other year Discussed breast self awareness Up to date on colon cancer screening an DEXA Hx simple hyperplasia - last EMB negative, continue progesterone Handout given with information regarding healthy lifestyle Plan Details Other Medications: Refilled: progesterone micronized off 7 days; repeat cycle 100 mg PO QPM 90 caps 3RF 01/30/21 1038 <Electronically signed by Jessica Paulino MD> Date Jessica Paulino MD Cosigner Signature: Date (if applicable) CC: Siri Augustine DO Work Phone: Start: 10-04-2020 End: 10-10-2020 Dexa Bone Density Study Comments: See Note; NOTES: [facility] Services [address] [place] [id number] Dexa Bone Density Study MR#: [id number] Acct: [id number] Name: VONDA HUMMEL Chandra Rep #: [id number] : 1955 F 65 From: Ranjeet koenig MD PCP: Dr. Siri Augustine, Status: REG CLI Study: Dexa Bone Density Study Date of Exam: 10/04/20 Exam# [id number] Ordering Dr: Jessica Paulino MD STUDY: DUAL ENERGY X-RAY ABSORPTIOMETRY / DXA REASON FOR EXAM: Female, 65 years old. Menopause TECHNIQUE: Bone Mineral Density (BMD) measurements of lumbar spine and bilateral hips were obtained. COMPARISON: None. FINDINGS: Lumbar Spine (L1-L4): g/cm2 (1.255) / T-score (0.6) / Z-score (2.2) Findings are suggestive of normal bone density with a low fracture risk. Left Femur Total: g/cm2 (1.109) / T-score (0.8) / Z-score (2.1) Left Femoral Neck: g/cm2 (0.928) / T-score (-0.8) / Z-score (0.7) Right Femur Total: g/cm2 (1.113) / T-score (0.8) / Z-score (2.1) Right Femoral Neck: g/cm2 (0.982) / T-score (-0.4) / Z-score (1.1) BD/Dexa Bone Density Study IMPRESSION: The patient is considered normal as outlined below according to World Anthony Organization (WHO) criteria with a low fracture risk. Reference Information: The T-score is the number of standard deviations above or below the standard which is normal for young adults at their peak bone mineral density. The World Health Organization (WHO) interprets the T-scores as follows: Above -1 Normal bone density Between -1 and -2.5 Osteopenia Equal to / or below -2.5 Osteoporosis As a practical clinical guideline, osteopenia may be graded as follows: Mild -1 through -1.5 Moderate -1.6 through -2.0 Severe -2.1 through -2.4 The Z-score is the number of standard deviations above or below age-matched controls. A Z-score of less than -1.5 would be considered abnormal. References: 1. NIH Osteoporosis and Related Bone Diseases www osteo.org 2. International Society for Clinical Densitometry www iscd.org 3. National Osteoporosis Foundation www nof.org Electronically Signed: Ranjeet Mg MD at 12:34 EDT , Service support , CC: Dr. Jessica Paulino MD; Dr. Siri Augustine DO Bundle Collector: Signed Siri Augustine DO Work Phone: Dilation and curetta ge of uterus Olivia Gravius Plan of Treatment Date Care Activity Detail Author Start: 11-07-2026 Lipid panel [facility] Start: 11-23-2023 Thyroid Nodule Ultrasound Thyroid Nodule Ultrasound [facility] Start: 05-04-2023 Thyroid Nodule Ultrasound Thyroid Nodule Ultrasound [facility] Start: 05-02-2023 Screening for malignant neoplasm of breast Mammogram [facility] Start: 01-18-2023 Influenza vaccination Influenza Vaccine (#1) [facility] Start: 01-18-2022 Influenza vaccination [facility] Start: 11-09-2021 Subsequent hospital visit by physician 11/09/2021 Hospital Encounter Radiology Miranda Almeida DO [address] [place] [address] [facility] Start: 03-13-2021 Comprehensive metabolic panel Metabolic Panel, Comprehensive (26485) [facility] Work Phone: Start: 03-13-2021 Assay of thyroid stimulating hormone tsh TSH (THYROID STIMULATING HORMONE) (97232) [facility] Work Phone: Start: 12-12-2020 Lipoprotein blood antonietta numbers & subclasses NMR Profile (91801) [facility] Work Phone: Start: 12-12-2020 Assay of thyroid stimulating hormone tsh TSH (02838) [facility] Work Phone: Start: 10-26-2020 25 hydroxy includes fractions if performed CALCIFIDIOL (67804) VIT D 25 [facility] Work Phone: Start: 10-26-2020 Lipid panel LIPID PANEL (45789) [facility] [employer] [facility]; [facility] Work Phone: Payers Date Payer Category Payer Medicare [employer] [id number] 2021-Present [address] [place] [address] Medicare HMO [id number] 2021 Medicare [id number] 2016 Unknown BCBS BCBS - [place] P PO [id number] 2016-Present [phone] [address] [place] [address] [id number] Unknown Social History Date Type Detail Facility Start: 12-13-2021 Caffeine Use Caffeine Use [facility] Work Phone: Evaluation note Note Date & Type Note Facility documented in this encounter [facility] Evaluation note Note Date & Type Note Facility documented in this encounter [facility] Evaluation note Note Date & Type Note Facility documented in this encounter [facility] Instructions Note Date & Type Note Facility [facility] Work Phone: Instructions Note Date & Type Note Facility [facility] Work Phone: Instructions Note Date & Type Note Facility [facility] Work Phone: Instructions Note Date & Type Note Facility [facility] Work Phone: Instructions Note Date & Type Note Facility [facility] Work Phone: Instructions Note Date & Type Note Facility [facility] Work Phone: Instructions Note Date & Type Note Facility [facility] Work Phone: Summary Purpose Family History No Family History Records FoundNo Family History Records FoundNo Family History Records FoundNo Family History Records FoundNo Family History Records FoundNo Family History Records Found Advance Directives No Advanced Directives Records FoundDocuments on File Type Date Recorded Patient Manager Bilingual Expl anation ACP-Advance Directive ACP-Power of Store Administrative Assistant Instructions Name Dates Details How to access health informa tion online Indication:Non-smoker Start:16-Dec-2019 Instruction Type:Patient Education How to access health informa tion online - Detail Indication:Non-smoker Start:16-Dec-2019 Instruction Type:Patient Education Patient Instructions Indication:Non-smoker Start:16-Dec-2019 Instruction Type:Provider Instructions for Treatment Name Dates Details How to access health informa tion online Indication:Non-smoker Start:16-Dec-2019 Instruction Type:Patient Education How to access health informa tion online - Detail Indication:Non-smoker Start:16-Dec-2019 Instruction Type:Patient Education Patient Instructions Indication:Non-smoker Start:16-Dec-2019 Instruction Type:Provider Instructions for Treatment Name Dates Details How to access health informa tion online Indication:Non-smoker Start:16-Dec-2019 Instruction Type:Patient Education How to access health informa tion online - Detail Indication:Non-smoker Start:16-Dec-2019 Instruction Type:Patient Education Patient Instructions Indication:Non-smoker Start:16-Dec-2019 Instruction Type:Provider Instructions for Treatment Name Dates Details How to access health informa tion online Indication:Non-smoker Start:16-Dec-2019 Instruction Type:Patient Education How to access health informa tion online - Detail Indication:Non-smoker Start:16-Dec-2019 Instruction Type:Patient Education Patient Instructions Indication:Non-smoker Start:16-Dec-2019 Instruction Type:Provider Instructions for Treatment Name Dates Details How to access health informa tion online Indication:Non-smoker Start:16-Dec-2019 Instruction Type:Patient Education How to access health informa tion online - Detail Indication:Non-smoker Start:16-Dec-2019 Instruction Type:Patient Education Patient Instructions Indication:Non-smoker Start:16-Dec-2019 Instruction Type:Provider Instructions for Treatment Name Dates Details How to access health informa tion online Indication:Non-smoker Start:16-Dec-2019 Instruction Type:Patient Education How to access health informa tion online - Detail Indication:Non-smoker Start:16-Dec-2019 Instruction Type:Patient Education Patient Instructions Indication:Non-smoker Start:16-Dec-2019 Instruction Type:Provider Instructions for Treatment Additional Source Comments INFORMATION SOURCE (unrecogn ized section and content) DATE CREATED AUTHOR AUTHOR'S ORGANIZ ATION 11/12/2017 [facility] DATE CREATED AUTHOR AUTHOR'S ORGANIZ ATION 01/16/[address] [facility] DATE CREATED AUTHOR AUTHOR'S ORGANIZ ATION 10/04/2019 [facility] DATE CREATED AUTHOR AUTHOR'S ORGANIZ ATION 11/11/2021 [facility] DATE CREATED AUTHOR AUTHOR'S ORGANIZ ATION 06/10/2023 [facility] Care Teams (unrecognized sec tion and content) Human Service Coordinator Relationship Specialty Start Date End Date Syl Martinez PCP - General 01/08/16 Human Service Coordinator Relationship Specialty Start Date End Date Miranda Almeida [address] [place] [address] PCP - General 12/13/21 Human Service Coordinator Relationship Specialty Start Date End Date ElleMiranda cohn [address] [place] [address] PCP - General 12/13/21 FOR RECORDS PERTAINING TO PATIENTS WHO ARE OR HAVE BEEN ENROLLED IN A CHEMICAL DEPENDENCY/SUBSTANCEABUSE PROGRAM, SOME INFORMATION MAY BE OMITTED. This clinical summary was aggregated from multiple sources. Caution should be exercised in using it in the provision of clinical care. This summary normalizes information from multiple sources, and as a consequence, information in this document may materially change the coding, format and clinical context of patient data. In addition, data may be omitted in some cases. CLINICAL DECISIONS SHOULD BE BASED ON THE PRIMARY CLINICAL RECORDS. [facility] [employer] [facility]. provides no warranty or guarantee of the accuracy or completeness of information in this document.
[2023-06-11] MEDS: Lactated Ringers 1,000 ML 15 ML IV (10:12)
--- NOTE | 2023-06-11 10:22 | HP.PCM_ITS ---
History and Physical Date of Admission: 06/11/23 Vital Signs 04/26/2314:33 05/29/2412:05 05/29/2412:06 Height 5 ft 3.5 in 5 ft 3.5 in 5 ft 3.5 in Weight: 180 lb BMI 31.4 BP 161/97 H Intake Visit Reasons: surgical consult/preop Pen Maker Required: No Is patient in pain?: No Allergies No Known Allergies Allergy (Verified 05/29/23 13:01) Medications cholecalciferol (vitamin D3) 50 mcg (2,000 unit) capsule 2,000 unit PO DAILY 08/26/18 [History Confirmed 05/29/23] Post menopausal: No Patient : No : No [facility] Medical History Status post hysteroscopy (~10/16/18) Surgical History Varicose vein of leg Family History Mother HypertensionFather CVA (cerebral vascular accident) Social History adopted: No number of children: 3 current occupational status: retired sexually active: Yes Smoking Status: Never smoker alcohol intake: current alcohol intake frequency: holidays/special occasions only substance use type: does not use well-balanced diet: daily or most days caffeine: Yes Type: coffee Number of servings: 1 what type of physical activity do you participate in: walking frequency: 1-2 times per week seatbelt use: always do you feel safe at home: Yes additional social history: HPI surgical consult/preop Details: VONDA HUMMEL is a 68 year old who presents for pre-op exam. She is schedule for a hysteroscopy D&C for a 1 cm fundal endometrial polyp and history of simple hyperplasia without atypia. She denies bleeding currently. History 4 Elective abortions 0 Hx Para 3 Spontaneous abortions 1 Hx # Term Pregnancies 3 Ectopic pregnancies 0 Hx # Pregnancies 0 Multiple births 0 # of living children 3 ROS Const ROS Unobtainable: All systems reviewed & are unremarkable except as noted in H Resp Resp: Reports system reviewed and no additional complaints, except as documented; Denies cough GI GI: Reports as per HPI Psych Psych: Reports system reviewed and no additional complaints, except as documented Exam Const General: cooperative, healthy appearing, comfortable and no acute distress Resp Effort & Inspection: normal respiratory effort Skin General: no rashes or lesions noted Psych Appearance: grossly normal Speech and Movement: speech and movement normal Coding Level of Care Code Off vis,est,level 4 Diagnoses 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 I have discussed with the patient the risks, benefits, and alternatives of the procedure which include but are not limited to risks of anesthesia, bleeding, infection, possible damage to bowel, bladder, or surrounding vasculature which could lead to additional surgery to evaluate any complications. Patient agrees to procedure and wishes to proceed. ACOG/uptodate references given for additional information regarding procedure. plan for hysteroscopy dilation and curettage Orders: Orders CBC W/Diff, Automated Today N36.2 - Urethral caruncle, N85.01 - Benign endometr ial hyperplasia
--- NOTE | 2023-06-11 11:10 | PCM.OPRPT ---
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: (2) Thickened endometrium: Report of Operation Date of Procedure: 06/11/23 Pre-Operative Diagnosis: thickened endometrium, history of uterine hyperplasia Post-Operative Diagnosis: thickened endometrium, history of uterine hyperplasia Surgery/Procedure Performed:: hysteroscopy dilation and curettage Description of Surgical Findings:: 3 polyp structures in the endometrium idetified Surgeon: Ndaira Kessler district branch manager: None Type of Anesthesia: MAC Specimen's removed: endometrial curettings Estimated Blood Loss (mL): 5cc Description of Procedure: Patient was prepped and draped in a normal sterile fashion under MAC anesthesia. A weighted speculum was placed in the vagina and the anterior lip of the cervix was grasped with a single-tooth tenaculum. Cervix was progressively dilated to allow passage of a 5 mm hysteroscope. The lining was fully visualized and noted to have 3 separate polyp like structures located round the tubal ostia on the left side of the uterus and fundus. Uterine sounded to 8 cm. Curettage was performed using the symphion device and the specimen was sent to pathology. All instruments were removed from the vagina and excellent hemostasis was noted. Patient was awoken and taken to recovery in stable condition. Procedure Start Time: 10:56 Procedure Stop Time: 11:08 Complications none Admit VTE Documentation VTE Present on Admission: No VTE Mechan Device Prophylaxis: SCD's VTE Pharm Prophylaxis ordered?: No Multi Select Codes Urinary/Genital Urinary/Genital CPT Codes: 34950 Hysteroscopy,EMC, Polypectomy
[2023-06-11 11:15] VITALS: BP 113/76; BP 140/75; PULSE 73; RESP 16; TEMP 37.1; O2SAT 95
--- NOTE | 2023-06-11 11:15 | DCINST_ITS ---
Discharge Instructions Diet Discharge Diet: No restrictions Activity Discharge Activity: Return to Normal Activity, May Shower and May Take a Tub Bath (after 1 week) May resume sexual activity in: 1-2 weeks Weight Bearing Status: Weight bearing as tolerated Lifting Restrictions: none Dressing / Incision Call your doctor if you observe: Fever of 101 or Higher, Using more than 1 pad per hour, Shortness of breath and Uncontrolled pain Follow Up Care Please Follow Up With: Nadira Kessler DO When: Call [phone] to schedule appointment. Test Results: Test results from this visit will be discussed in further detail at your follow- up appointment, if applicable. Discharge Plan Admission Primary Reason for Your Visit: hysteroscopy dilation and curettage Attending Provider: Nadira Kessler Primary Care Provider: OSIEL JAUREGUI Discharge Orders/Prescriptions Prescriptions: New naproxen 500 mg tablet 500 mg PO BID PRN (Reason: pain) Qty: 20 0RF Continued cholecalciferol (vitamin D3) 2,000 unit capsule 2,000 unit PO DAILY olive leaf extract 250 mg capsule 250 mg PO DAILY Referrals / Follow Up: OSIEL JAUREGUI [Other] Disposition Disposition (needs filled in before D/C Order can be placed): Home, Self Care
[2023-06-11 11:20] VITALS: BP 114/80; BP 140/75; PULSE 73; RESP 16; O2SAT 93
[2023-06-11 11:25] VITALS: BP 116/81; BP 140/75; PULSE 69; RESP 16; TEMP 36.4; O2SAT 97
--- NOTE | 2023-06-11 11:25 | EMB_PTH ---
PATHOLOGY RESULTS PATIENT: VONDA HUMMEL LOC: [facility] [place] U#:[id number] AGE/SX: 68/F ROOM: RE06/11/[address]: Dr. 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 Fragments of myometrium. See comment. SJ:orly 06/13/2023 COMMENT The specimen predominantly consists of fragments of myometrium. Case has been reviewed in consultation with Dr. Genao who concurs with the above diagnosis. IDC:AM MICROSCOPIC DESCRIPTION Slides are reviewed. GROSS DESCRIPTION Received in fixative is one container labeled with the patient's name and designated Endometrial curettings and polyp. The specimen consists of multiple irregular fragments of mi soft tissue that in aggregate measure 2.0 x 1.0 x 0.2 cm. The specimen is totally submitted in one cassette. / SJ:orly 06/12/2023 TC:5 CPT: 04179
[2023-06-11 11:55] VITALS: BP 140/75
== END 2023-06-11 12:07 | disposition home or self-care (01) ==
LOC: SDC 09:39 → AC 09:40
PROVIDERS: Referring Provider Obstetrics & Gynecology; Visit Provider Obstetrics & Gynecology
PROC: 0UB98ZZ Excision of Uterus, Via Natural or Artificial Opening Endoscopic (ICD-10-PCS; CPT 58558; principal; 2023-06-11 11:10)
DX: N84.0 Polyp of corpus uteri (principal); R93.89 Abnormal findings on diagnostic imaging of other specified body structures
CPT/HCPCS: 58558; 00952; 88305; J7120; J2405

== ENCOUNTER → 2023-08-07 | Outpatient (CLI) | payer MEDICARE, SELFPAY ==
[2023-08-07 15:17] LABS: Bacteria 0 SEEN /hpf (None Seen); Mucous, Urine 0 SEEN /hpf (<or=2+)
[2023-08-07 15:35] LABS: Color, Urine Yellow (Yellow); Glucose, Dipstick Normal (Normal); Ketone-Dipstick 5 mg/dl (Negative); Leukocyte Esterase-Dipstick 100 /ul (Negative); Nitrite-Dipstick Negative (Negative); Occult Blood-Urine 10 /ul (Negative); Protein-Dipstick 30 mg/dl (Negative); Specific Gravity, Urine 1.025 (1.002-1.030); Urine Bilirubin Dipstick Negative (Negative); Urine Clarity Clear (Clear); Urine Urobilinogen Normal (Normal)
[2023-08-07 15:56] LABS: Squamous Epithelial Cells - UA 5-10 SEEN /hpf (5-10)
[2023-08-07 15:57] LABS: Red Blood Cells-Urine 0-5 SEEN /hpf (0-5); Renal Epithelial Cells 0-5 SEEN /hpf (0-5); White Blood Cells 0-5 SEEN /hpf (0-5)
== END | disposition home or self-care (01) ==
LOC: LABSPEC 15:05
PROVIDERS: Referring Provider Physician Assistant Surgical; Visit Provider Physician Assistant Surgical
DX: R30.0 Dysuria (principal)
CPT/HCPCS: 81001; 87086

== ENCOUNTER 2023-09-12 08:24 | Day surgery (SDC) | payer MEDICARE, OTHER, SELFPAY ==
--- NOTE | 2023-09-05 12:17 | EKG12_ITS ---
Test Reason : PRE-OP Blood Pressure : / mmHG Vent. Rate : 061 BPM Atrial Rate : 061 BPM P-R Int : 154 ms QRS Dur : 084 ms QT Int : 442 ms P-R-T Axes : 048 007 049 degrees QTc Int : 444 ms Normal sinus rhythm Normal ECG Confirmed by IVANA SIEGEL, KI ([id number]), medical transcription editor CAILIN DAVIDSON ([id number]) on 09/06/2023 10:39:17 AM Referred By: Kamilla Ashley Confirmed By:KI HEATH MD
[2023-09-05 13:33] LABS: Hematocrit 39.8 % (37-47); Hemoglobin 12.9 g/dL (12.0-15.0); Mean Corp Hgb Conc 32.4 g/dL (32-36); Mean Corpuscular Hgb 29.6 pg (27.0-32.0); Mean Corpuscular Volume 91.3 fL (81-99); Mean Platelet Vol. 10.2 fl (6.2-12.0); Platelet Count 221 K/mm3 (150-450); RBC Distribution Width CV 13.6 % (11.6-14.6); RBC Distribution Width SD 45.9 fl (35.1-43.9); Red Blood Count 4.36 M/mm3 (4.2-5.4); White Blood Count 5.2 K/mm3 (4.4-11.0)
[2023-09-05 14:06] LABS: Anion Gap 1 (5-15); BUN 20 mg/dL (7-18); BUN/Creat Ratio 26.5 RATIO (10-20); Calcium,Total 9.2 mg/dL (8.5-10.1); Chloride 110 mmol/L (98-107); Creatinine, Serum 0.76 mg/dL (0.55-1.02); EST Glomerular Filtration Rate 81 mL/min (>60); Est Glom Filt Rate - Afr Amer 98 mL/min (>60); Glucose 81 mg/dL (74-106); Potassium 4.2 mmol/L (3.5-5.1); Sodium Level 140 mmol/L (136-145)
--- NOTE | 2023-09-12 | BLB_PTH ---
PATIENT: VONDA HUMMEL LOC: [facility] [place] U#:[id number] AGE/SX: 68/F ROOM: RE09/12/[address]: Dr. Kamilla Ashley MD : 1955 BED: DIS: 09/12/2023 SPEC #: [id number] RECD: 09/12/23 13:47 STATUS: MARGIE RAUL #: [id number] GABE: 09/12/23 00:[address]: Kamilla Ashley DEPT: SURGICAL PATHOLOGY RECD BY: Baldemar German ENTERED: 09/12/23 13:47 SP TYPE: TURB OTHR DR: Dr. 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 See cancer summary in comment section. 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 MICROSCOPIC DESCRIPTION Slides are reviewed. GROSS DESCRIPTION Received in fixative is one container labeled with the patient's name and designated Bladder tumor. The specimen consists of multiple irregular fragments of light mi soft tissue that in aggregate measure 2.5 x 1.2 x 0.2 cm. The specimen is totally submitted in one cassette. VERNA/mr 09/12/23 TC:0 CPT:56383
[2023-09-12] MEDS: Lactated Ringers 1,000 ML 15 ML IV (09:00)
[2023-09-12 09:20] VITALS: BP 171/73; PULSE 64; RESP 16; TEMP 36.6; O2SAT 100; BMI 28.9
--- NOTE | 2023-09-12 10:55 | DCINST_ITS ---
Discharge Instructions Diet Discharge Diet: No restrictions Activity Discharge Activity: Return to Normal Activity Dressing / Incision Call your doctor if you observe: Fever of 101 or Higher, Inability to urinate and Inability to have a bowel movement Follow Up Care Please Follow Up With: Kamilla Ashley MD When: 1 week in the office. Test Results: Test results from this visit will be discussed in further detail at your follow- up appointment, if applicable. Discharge Plan Admission Attending Provider: Kamilla Ashley Primary Care Provider: Miranda Almeida Discharge Orders/Prescriptions Prescriptions: New phenazopyridine [Pyridium] 200 mg tablet 200 mg PO TID PRN PRN (Reason: Bladder Spasms) 7 Days Qty: 30 0RF cephalexin [cephalexin] 500 mg capsule 500 mg PO Q12 3 Days Qty: 6 0RF oxycodone-acetaminophen [Percocet] 5-325 mg tablet 1 tab PO Q8H PRN (Reason: pain) 3 Days Qty: 10 0RF Continued cholecalciferol (vitamin D3) 2,000 unit capsule 2,000 unit PO DAILY olive leaf extract 250 mg capsule 250 mg PO DAILY Other Ambulatory Orders: 12 Lead EKG (Routine) Timeframe: [id number] Location: None Selected Ordered By: Dr. Anibal Jose Disposition Disposition (needs filled in before D/C Order can be placed): Home, Self Care
--- NOTE | 2023-09-12 10:59 | PCM.OPRPT ---
Report of Operation Date of Procedure: 09/12/23 Pre-Operative Diagnosis: abnormal imaging genitourinary system Post-Operative Diagnosis: bladder tumor Surgery/Procedure Performed:: Cystoscopy, transurethral resection of medium bladder tumor, pelvic exam under anesthesia Surgeon: Kamilla Ashley Type of Anesthesia: MAC Specimen's removed: Bladder tumor Description of Procedure: The patient is a 68-year-old female who had an abnormal ultrasound revealing a polyp in the bladder. She now presents for cystoscopic evaluation. Informed consent was obtained. The patient was taken to the operating room and placed on the operating room table. Anesthesia monitored the head, neck, airway, IV access and vital signs throughout the case. Once anesthesia was appropriately administered, the patient was placed into dorsolithotomy position and was prepped and draped in usual sterile fashion. Pelvic examination revealed cystocele, uterine prolapse and likely rectocele as well. The pelvis was very mobile and no palpable mass was found. The cystoscope was then inserted through the urethra under direct visualization into the urinary bladder. There was a 70 degree lens. The entire bladder mucosa was visualized revealing an approximately 2 cm papillary tumor adjacent to the right ureteral orifice but not involving it. The remainder of the bladder mucosa revealed no evidence of erythema or mass. Using the TUR set and a 24 loop, the tumor was removed and the base was cauterized for hemostasis and tissue treatment. The ureteral orifice was left uninvolved. The tumor was then irrigated out and sent for pathologic evaluation. The patient was awakened and taken to the recovery room in good condition. There were no complications during this procedure. Grafts/Implants Used: none Complications none Admit VTE Documentation VTE Present on Admission: Yes VTE Mechan Device Prophylaxis: SCD's VTE Pharm Prophylaxis ordered?: No Reason prophylaxis not ordered:: Treatment Not Indicated
[2023-09-12 11:02] VITALS: BP 103/69; BP 171/73; PULSE 75; RESP 16; TEMP 36.4; O2SAT 93
[2023-09-12 11:07] VITALS: BP 171/73; BP 99/73; PULSE 72; RESP 16; O2SAT 96
[2023-09-12 11:10] VITALS: BP 112/75; BP 171/73; PULSE 73; RESP 16; O2SAT 95
[2023-09-12 11:15] VITALS: BP 118/79; BP 171/73; PULSE 68; RESP 16; TEMP 36.1; O2SAT 95
[2023-09-12 11:44] VITALS: BP 171/73
== END 2023-09-12 11:55 | disposition home or self-care (01) ==
LOC: SDC 08:25 → AC 08:28
PROVIDERS: PCP Family Medicine; Referring Provider Urology; Visit Provider Urology
PROC: 0TBB8ZX Excision of Bladder, Via Natural or Artificial Opening Endoscopic, Diagnostic (ICD-10-PCS; CPT 52235; principal; 2023-09-12 10:10)
DX: C67.9 Malignant neoplasm of bladder, unspecified (principal); N81.4 Uterovaginal prolapse, unspecified; R93.89 Abnormal findings on diagnostic imaging of other specified body structures; N95.2 Postmenopausal atrophic vaginitis; N39.43 Post-void dribbling; N36.2 Urethral caruncle; Z80.3 Family history of malignant neoplasm of breast
CPT/HCPCS: 52235; 00912; 36415; 80048; 85027; 88307; 93005; J7120; J2405

== ENCOUNTER 2023-09-22 21:42 | Observation (INO) | payer MEDICARE, OTHER, SELFPAY ==
[2023-09-22 21:43] VITALS: BP 204/120; PULSE 94; RESP 17; TEMP 36.8; O2SAT 95
[2023-09-22 21:55] VITALS: BMI 29.5
--- NOTE | 2023-09-22 22:01 | ED.VIS.FEGU ---
HPI HPI - Female History of Present Illness Chief Complaint: Complaint Narrative Narrative: 68-year-old female past medical history of hypercholesterolemia, states that she had a bladder tumor removed by Dr. Kamilla Ashley approximately 10 days ago. She was placed on cephalexin. Approximately 3 days ago she started having gross hematuria. It was this evening that she was unable to urinate and she had been passing clots. She denies any other bleeding diathesis. She does not take blood thinners. Given her urinary retention, she was told to report to the emergency department. She states that she was able to urinate a little bit while she was here, but is passing a large amount of clots. She denies any chest pain or shortness of breath. No lightheadedness. 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 Status post hysteroscopy (~10/16/18) Thickened endometrium Wears glasses Home Medications cholecalciferol (vitamin D3) 50 mcg (2,000 unit) capsule 2,000 unit PO DAILY 08/26/18 [History Last Taken Unknown] olive leaf extract 250 mg capsule 250 mg PO DAILY 06/06/23 [History Last Taken Unknown] cephalexin 500 mg capsule 500 mg PO Q12 post-operative 3 days #6 CAPSULES 09/12/23 [Rx Last Taken Unknown] oxycodone-acetaminophen 5 mg-325 mg tablet (Percocet) 1 tab PO Q8H PRN pain 3 days #10 tabs 09/12/23 [Rx Last Taken Unknown] phenazopyridine 200 mg tablet (Pyridium) 200 mg PO TID PRN PRN Bladder Spasms 7 days #30 tabs 09/12/23 [Rx Last Taken Unknown] Allergy/AdvReac Type Severity Reaction Status Date / Time No Known Allergies Allergy Verified 09/12/23 09:19 Family History Mother Hypertension Father CVA (cerebral vascular accident) Surgical History S/P dilation and curettage (~06/11/23) Varicose vein of leg Social History adopted: No number of children: 3 current occupational status: retired sexually active: Yes Smoking Status: Never smoker alcohol intake: current alcohol intake frequency: holidays/special occasions only substance use type: does not use well-balanced diet: daily or most days caffeine: Yes Type: coffee Number of servings: 1 what type of physical activity do you participate in: walking frequency: 1-2 times per week seatbelt use: always do you feel safe at home: Yes additional social history: ROS ROS ED ROS Narrative Constitutional: No fever, no chills. HEENT: No sore throat. No neck pain. No loss of vision. No rhinorrhea. Cardiovascular: No chest pain. No palpitations. No pedal edema. Respiratory: No cough, no shortness of breath. Abdominal: Positive suprapubic discomfort/abdominal pain. No nausea. No vomiting. Genitourinary: No dysuria. Positive gross hematuria. Passing clots. Intermittent urinary retention. Musculoskeletal: No myalgias. No arthralgias. Neurologic: No headaches. No dizziness. No lightheadedness. Skin: No rash. No change in color. Psychiatric: No depression. No anxiety. EXAM Physical Exam Narrative Exam Narrative: Afebrile. Vital signs noted. HEENT: Normocephalic. Atraumatic. PERRL, EOMI. Neck soft and supple. No point tenderness or step off. No subconjunctival pallor. No central cyanosis. Cardiovascular: Regular rate and rhythm. No murmurs, rubs, or gallops appreciated. Respiratory: No tachypnea. Lungs clear to auscultation bilaterally. Gastrointestinal: Abdomen soft, positive suprapubic discomfort with normoactive bowel sounds. No rebound or guarding. Neurological: Awake. Alert. Nonfocal, nonlateralizing. Skin: No rash. Normal color. No pallor. Musculoskeletal: No pedal edema. Full range of motion extremities. Const Vital Signs: 09/22/23 21:43 09/22/23 22:38 Temperature 98.2 F 98.2 F Temperature Source Temporal Temporal Pulse Rate 94 65 Respiratory Rate 17 18 Blood Pressure 204/120 H 121/84 H Blood Pressure Mean 148 96 Pulse Ox 95 97 Oxygen Delivery Method Room Air Room Air MDM MDM MDM Narrative Medical decision making narrative: Her urologist has called in with instructions. Was not felt that she requires CT imaging currently. Baseline labs will be drawn to make sure she is not anemic requiring transfusion. BMP will be drawn to check her kidney function/creatinine. I reviewed her laboratory work and she has a normal hemoglobin of 13.8 hematocrit 41.3, platelet count normal at 200. BUN is slightly elevated at 22 but she has normal creatinine of 0.86. Glucose appropriately elevated at 119 with an anion gap normal at 6. Three-way Treadwell will be inserted and her bladder will be irrigated. Patient will be discussed with Dr. Ashley with plan for admission. After bladder irrigation of approximately 1 L, while her urine has lightened to light pink, she did recently pass a clot with the irrigation. I discussed patient with her urologist who will admit the patient to the medical surgical floor. Patient is in stable condition. History & Record Review Discussion w/independent historian: Patient Lab Data Attestation: I reviewed the patient's lab results. Labs: Laboratory Results - last 24 hr 09/22/23 22:12 WBC 5.4 RBC 4.65 Hgb 13.8 Hct 41.3 MCV 88.8 MCH 29.7 MCHC 33.4 RDW Std Deviation 42.5 RDW Coeff of [place] 13.2 Plt Count 200 MPV 10.1 Immature Gran % (Auto) 0.200 Neut % (Auto) 45.8 L Lymph % (Auto) 42.7 H [place] % (Auto) 7.8 Eos % (Auto) 2.8 Baso % (Auto) 0.7 Absolute Neuts (auto) 2.5 Absolute Lymphs (auto) 2.31 Nucleated RBC % 0 Sodium 143 Potassium 3.7 Chloride 111 H Carbon Dioxide 26.0 Anion Gap 6 BUN 22 H Creatinine 0.86 Estim Creat Clear Calc 64.64 Est GFR (MDRD) Af Amer 84 Est GFR (MDRD) Non-Af 69 BUN/Creatinine Ratio 25.5 H Glucose 119 H Calcium 9.4 Discharge Plan Dx/Rx/DC Orders Clinical Impression: Bladder tumor, Hematuria Disposition Disposition: Acute Care [facility]
[2023-09-22 22:19] LABS: Absolute Lymphocyte Count 2.31 X10^3/uL (0.83-4.51); Absolute Neutrophil Count 2.5 X10^3/uL (2.0-7.7); Basophil# 0.04 X10^3/uL; Basophil% 0.7 % (0-1); Eosinophil# 0.15 X10^3/uL; Eosinophils% 2.8 % (0-5); Hematocrit 41.3 % (37-47); Hemoglobin 13.8 g/dL (12.0-15.0); Lymphocyte # 2.31 X10^3/ul (0.83-4.51); Lymphocyte % 42.7 % (19-41); Mean Corp Hgb Conc 33.4 g/dL (32-36); Mean Corpuscular Hgb 29.7 pg (27.0-32.0); Mean Corpuscular Volume 88.8 fL (81-99); Mean Platelet Vol. 10.1 fl (6.2-12.0); Monocyte# 0.42 X10^3/uL; Monocyte% 7.8 % (0-10); NRBC Flagged by Analyzer 0 % (0-5); Neutrophil # 2.48 X10^3/uL (2.7-7.7); Neutrophil % 45.8 % (47-70); Platelet Count 200 K/mm3 (150-450); RBC Distribution Width CV 13.2 % (11.6-14.6); RBC Distribution Width SD 42.5 fl (35.1-43.9); Red Blood Count 4.65 M/mm3 (4.2-5.4); White Blood Count 5.4 K/mm3 (4.4-11.0)
[2023-09-22 22:35] LABS: Anion Gap 6 (5-15); BUN 22 mg/dL (7-18); BUN/Creat Ratio 25.5 RATIO (10-20); Calcium,Total 9.4 mg/dL (8.5-10.1); Chloride 111 mmol/L (98-107); Creatinine, Serum 0.86 mg/dL (0.55-1.02); EST Glomerular Filtration Rate 69 mL/min (>60); Est Glom Filt Rate - Afr Amer 84 mL/min (>60); Estimated Creatinine Clearance 64.64 ml/min; Glucose 119 mg/dL (74-106); Potassium 3.7 mmol/L (3.5-5.1); Sodium Level 143 mmol/L (136-145)
[2023-09-22 22:38] VITALS: BP 121/84; PULSE 65; RESP 18; TEMP 36.8; O2SAT 97
[2023-09-22 23:21] VITALS: BP 128/85; PULSE 71; RESP 14; TEMP 36.8; O2SAT 96
[2023-09-22 23:45] VITALS: BP 122/73; PULSE 69; RESP 14; O2SAT 100
[2023-09-23 01:19] VITALS: BMI 28.5
[2023-09-23 01:28] VITALS: BP 139/83; PULSE 60; RESP 16; TEMP 36.6; O2SAT 98
[2023-09-23] MEDS: Lactated Ringers 1,000 ML 75 ML IV (01:33)
[2023-09-23] MEDS: Cefazolin 1 GM/50 ML BAG IV ×3 (01:38→13:58)
[2023-09-23 05:25] LABS: Absolute Neutrophil Count 3.6 X10^3/uL (2.0-7.7); Basophil# 0.03 X10^3/uL; Basophil% 0.5 % (0-1); Eosinophil# 0.08 X10^3/uL; Eosinophils% 1.4 % (0-5); Hematocrit 38.5 % (37-47); Hemoglobin 12.6 g/dL (12.0-15.0); Lymphocyte % 30.8 % (19-41); Mean Corp Hgb Conc 32.7 g/dL (32-36); Mean Corpuscular Hgb 29.2 pg (27.0-32.0); Mean Corpuscular Volume 89.3 fL (81-99); Monocyte# 0.36 X10^3/uL; Monocyte% 6.2 % (0-10); NRBC Flagged by Analyzer 0 % (0-5); Neutrophil # 3.56 X10^3/uL (2.7-7.7); Neutrophil % 60.9 % (47-70); Platelet Count 220 K/mm3 (150-450); RBC Distribution Width CV 13.2 % (11.6-14.6); RBC Distribution Width SD 43.1 fl (35.1-43.9); Red Blood Count 4.31 M/mm3 (4.2-5.4); White Blood Count 5.8 K/mm3 (4.4-11.0)
[2023-09-23 05:45] VITALS: BP 115/79; PULSE 62; RESP 18; TEMP 36.6; O2SAT 96
--- NOTE | 2023-09-23 07:00 | CT_ITS ---
STUDY: CT ABDOMEN AND PELVIS WITH AND WITHOUT CONTRAST REASON FOR EXAM: Female, 68 years old. Gross hematuria, bladder cancer CTU please. RADIATION DOSAGE (If Supplied By Facility): CTDIvol = ( 13.27 ) mGy, DLP = ( 1834.44 ) mGycm TECHNIQUE: Transaxial images were obtained from the dome of the diaphragm to the symphysis pubis without oral contrast. IV 100mL Isovue-370 was administered. Sagittal and coronal images were reconstructed. Individualized dose optimization techniques were used for this CT. COMPARISON: None. FINDINGS: Minimal degree of linear scarring at the lung bases. The visualized portions of the heart are within normal limits. There is a 2.2 cm x 2.5 cm cyst in the dome of the right lower liver. There is also evidence of a 1.6 cm cyst in the midportion of the right lobe of the liver. Small gallstones are seen within the gallbladder lumen. Normal spleen. Normal pancreas. Normal bilateral adrenal glands. Normal right kidney. Normal left kidney. There is a small hiatal hernia. Normal small intestine. Moderate amount of fecal material is seen in the colon. The appendix is visualized and appears normal. Normal abdominal aorta. Normal inferior vena cava. Normal retroperitoneum. A Treadwell catheter is seen within the urinary bladder. There is a 1.7 cm x 2 cm mass in the posterior lateral aspect of the urinary bladder. There is a small umbilical hernia containing fat. There are mild degenerative changes of the visualized lumbar spine. Minimal anterior listhesis of L4 on L5 CT/CT Abd/Pelvis W/WO Contrast IMPRESSION: 1.7 cm x 2 cm mass in the posterolateral aspect of the urinary bladder on the right side. Small hepatic cysts. Electronically Signed: Ranjeet Mg MD at 9:18 EDT ,
--- NOTE | 2023-09-23 07:01 | HP.PCM_ITS ---
HPI - General General Date of Admission: 09/23/23 Date of Service: 09/23/23 Chief Complaint: Gross hematuria HPI Narrative VONDA HUMMEL, is a 68 F who had a recent TURBT proven bladder cancer who has had intermittent gross hematuria for the last 2 to 3 days. It has worsened to the point where she has had clots with difficulty voiding. She started antibiotics approximately 2 days ago. She was admitted through the emergency room and CBI was started. She feels better this morning. There were no new complaints from overnight. [facility] Medical History (Updated 09/23/23 @ 07:[address] Kamilla Ashley MD) Arthritis Bladder tumor Cardiology follow-up encounter Depression History of stress test Non-smoker Post-menopausal Shortness of breath on exertion Simple endometrial hyperplasia without atypia Status post hysteroscopy (~10/16/18) Thickened endometrium Transitional cell carcinoma determined by biopsy of bladder Wears glasses Home Medications cholecalciferol (vitamin D3) 50 mcg (2,000 unit) capsule 2,000 unit PO DAILY 02/05 [History Last Taken Unknown] cephalexin 500 mg capsule 500 mg PO Q12 post-operative 3 days #6 CAPSULES 09/12/23 [Rx Last Taken Unknown] Allergy/AdvReac Type Severity Reaction Status Date / Time No Known Allergies Allergy Verified 09/12/23 09:19 Family History Mother Hypertension Father CVA (cerebral vascular accident) Surgical History S/P dilation and curettage (~06/11/23) Varicose vein of leg Social History adopted: No number of children: 3 current occupational status: retired sexually active: Yes Smoking Status: Never smoker alcohol intake: current alcohol intake frequency: holidays/special occasions only substance use type: does not use well-balanced diet: daily or most days caffeine: Yes Type: coffee Number of servings: 1 what type of physical activity do you participate in: walking frequency: 1-2 times per week seatbelt use: always do you feel safe at home: Yes additional social history: ROS Constitutional Constitutional: Reports systems reviewed and no addt'l complaints, except as documented; Denies anorexia, chills, fatigue, fever(s) or night sweats Eyes Eyes: Reports systems reviewed and no addt'l complaints, except as documented ENT HEENT: Reports systems reviewed and no addt'l complaints, except as documented Cardiovascular Cardiovascular: Denies chest pain, diaphoresis, dizziness or dyspnea Respiratory/Chest Respiratory/Chest: Denies chest congestion, cough or dyspnea Gastrointestinal Gastrointestinal: Reports cramping; Denies nausea or vomiting Genitourinary Genitourinary: Reports abdominal discomfort, difficulty urinating, hematuria, urinary frequency and urinary urgency; Denies burning urination or dribbling Musculoskeletal Musculoskeletal: Reports systems reviewed and no addt'l complaints, except as documented Integumentary Integumentary: Reports systems reviewed and no addt'l complaints, except as documented Neurologic Neurologic: Reports systems reviewed and no addt'l complaints, except as documented Psychiatric Psychiatric: Reports systems reviewed and no addt'l complaints, except as documented Endocrine Endocrinology: Reports systems reviewed and no addt'l complaints, except as documented Hematologic/Lymphatic Hematologic/Lymphatic: Reports systems reviewed and no addt'l complaints, except as documented Allergic/Immunologic Allergic/Immunologic: Reports systems reviewed and no addt'l complaints, except as documented Vital Signs Vital Signs Vital Signs: 09/22/23 21:43 09/22/23 22:38 09/22/23 23:21 Temperature 98.2 F 98.2 F 98.2 F Temperature Source Temporal Temporal Pulse Rate 94 65 71 Respiratory Rate 17 18 14 Respiratory Effort Respiratory Depth Respiratory Pattern Blood Pressure 204/120 H 121/84 H 128/85 H Blood Pressure Mean 148 96 99 Blood Pressure Source Blood Pressure Position Blood Pressure Location Pulse Ox 95 97 96 Oxygen Delivery Method Room Air Room Air 09/22/23 23:45 09/23/23 01:28 09/23/23 01:50 Temperature 97.9 F Temperature Source Temporal Pulse Rate 69 60 Respiratory Rate 14 16 Respiratory Effort Normal Non-Labored Respiratory Depth Normal Respiratory Pattern Normal Blood Pressure 122/73 H 139/83 H Blood Pressure Mean 89 101 Blood Pressure Source Monitor Blood Pressure Position Semi-Fowlers Blood Pressure Location Left Arm Pulse Ox 100 98 Oxygen Delivery Method Room Air Room Air 09/23/23 05:45 Temperature 97.8 F Temperature Source Temporal Pulse Rate 62 Respiratory Rate 18 Respiratory Effort Respiratory Depth Respiratory Pattern Blood Pressure 115/79 Blood Pressure Mean 91 Blood Pressure Source Monitor Blood Pressure Position Semi-Fowlers Blood Pressure Location Left Arm Pulse Ox 96 Oxygen Delivery Method Room Air Weight Weight: 77.8 kg Body Mass Index (BMI) 28.5 Physical Exam Const alert, oriented x3 and no apparent distress General Appearance: cooperative and comfortable HEENT normocephalic, head/scalp atraumatic, hearing grossly normal bilaterally, external ears normal and moist oral mucous membranes Eyes General Eye: normal appearance of both eyes Neck supple General: normal visual inspection and trachea midline Lymph Lymphatic: no lymphedema noted Chest inspection of chest normal Resp normal respiratory effort, normal air movement, no retractions and no use of accessory muscles Effort and Inspection: able to speak in complete sentences and symmetric chest movement Cardio regular rate and regular rhythm GI soft to palpation, non-tender and non-distended no CVA tenderness Back/Spine no CVA tenderness Extremity normal to inspection Extremity Narrative: SCDs in place Skin no rashes or lesions noted, no jaundice, no petechiae and no mottling Neuro oriented x3, CN's II-XII intact bilaterally and moves all extremities Psych mental status grossly normal and thought process normal Results Lab / Micro Data 09/23/23 04:40 09/22/23 22:12 Labs: Laboratory Results - last 24 hr 09/22/23 22:12: WBC 5.4, RBC 4.65, Hgb 13.8, Hct 41.3, MCV 88.8, MCH 29.7, MCHC 33.4, RDW Std Deviation 42.5, RDW Coeff of [place] 13.2, Plt Count 200, MPV 10.1, Immature Gran % (Auto) 0.200, Neut % (Auto) 45.8 L, Lymph % (Auto) 42.7 H, [place] % (Auto) 7.8, Eos % (Auto) 2.8, Baso % (Auto) 0.7, Absolute Neuts (auto) 2.5, Absolute Lymphs (auto) 2.31, Nucleated RBC % 0, Sodium 143, Potassium 3.7, Chloride 111 H, Carbon Dioxide 26.0, Anion Gap 6, BUN 22 H, Creatinine 0.86, Estim Creat Clear Calc 64.64, Est GFR (MDRD) Af Amer 84, Est GFR (MDRD) Non-Af 69, BUN/Creatinine Ratio 25.5 H, Glucose 119 H, Calcium 9.4 09/23/23 04:40: WBC 5.8, RBC 4.31, Hgb 12.6, Hct 38.5, MCV 89.3, MCH 29.2, MCHC 32.7, RDW Std Deviation 43.1, RDW Coeff of [place] 13.2, Plt Count 220, MPV 10.0, Immature Gran % (Auto) 0.200, Neut % (Auto) 60.9, Lymph % (Auto) 30.8, [place] % (Auto) 6.2, Eos % (Auto) 1.4, Baso % (Auto) 0.5, Absolute Neuts (auto) 3.6, Absolute Lymphs (auto) 1.80, Nucleated RBC % 0 Assessment & Plan Assessment/Plan (1) Hematuria: (2) Transitional cell carcinoma determined by biopsy of bladder: PLAN: Plan stp CBI, she is clear this morning Continue manual irrigations as needed CTU today Continue antibiotics Home when maintains clear urine
[2023-09-23 07:31] VITALS: BP 138/86; PULSE 71; RESP 16; TEMP 36.4; O2SAT 96
--- NOTE | 2023-09-23 07:55 | NURSING ---
CBI stopped, pt to CT scan via bed.
--- NOTE | 2023-09-23 14:54 | CASEMGMT ---
Met with patient to complete MCKEON form. MCKEON form explained to patient who voiced understanding and signed form. Original form placed in pt?s chart and copy provided to?patient. Tg Pandey, Discharge Planning Asst
[2023-09-23 14:59] VITALS: BP 116/71; PULSE 71; RESP 14; TEMP 36.8; O2SAT 98
--- NOTE | 2023-09-23 17:23 | DCINST_ITS ---
Discharge Instructions Diet Discharge Diet: No restrictions Activity Discharge Activity: Return to Normal Activity Dressing / Incision Call your doctor if you observe: Fever of 101 or Higher, Inability to urinate and Inability to have a bowel movement Follow Up Care Please Follow Up With: Kamilla Ashley MD When: as planned for cystoscopy Test Results: Test results from this visit will be discussed in further detail at your follow- up appointment, if applicable. Discharge Plan Admission Admit Date/Time: 09/23/23 01:14 Attending Provider: Kamilla Ashley Primary Care Provider: Miranda Almeida Discharge Orders/Prescriptions Prescriptions: Continued cholecalciferol (vitamin D3) 2,000 unit capsule 2,000 unit PO DAILY cephalexin 500 mg capsule 500 mg PO Q12 3 Days Qty: 6 0RF Referrals / Follow Up: Miranda Almeida DO [Primary Care Provider] - Disposition Disposition (needs filled in before D/C Order can be placed): Home, Self Care
== END 2023-09-23 17:54 | disposition home or self-care (01) ==
LOC: ED 23:23 → MS3 09-23 02:05
PROVIDERS: Admitting Provider Urology; Emergency Provider Emergency Medicine; PCP Family Medicine; Visit Provider Urology
DX: R31.0 Gross hematuria (principal); C67.9 Malignant neoplasm of bladder, unspecified; R33.9 Retention of urine, unspecified; E78.00 Pure hypercholesterolemia, unspecified; Z98.890 Other specified postprocedural states
CPT/HCPCS: 36415; 51702; 74178; 80048; 85025; 87086; 96361; 96365; 96366; 99221; 99285; J7120; Q9967; A4216; G0378

== ENCOUNTER 2023-12-12 07:01 | Day surgery (SDC) | payer MEDICARE, OTHER, SELFPAY ==
--- NOTE | 2023-12-12 07:20 | PCM.PRE.AN2 ---
ASA Classification* ASA Classification ASA Classification: 2 Assessment & Plan Anesthesia* Anesthesia Assessment Anesthesia Assessment: Discussed sedation and/or anesthesia options, risks, benefits, and alternatives with patient/parents/legal guardian/POA. Questions invited. The patient/parents/legal guardian/POA seems to understand and agrees to proceed with anesthesia plan. Reviewed the physical assessment, medical history, allergy history and patient home medications list prior to surgery/procedure/anesthetic and documented any changes. Performed airway and anesthesia risk assessments. Anesthesia Type Anesthesia Type: General Anesthesia Focused Assessment* Airway Assessment Mouth opens: >3 cm Mallampati Score: II Focused Labs Anesthesia Preop lab: CBC WBC 5.8 K/mm3 (4.4-11.0) 09/23/23 04:40 RBC 4.31 M/mm3 (4.2-5.4) 09/23/23 04:40 Hgb 12.6 g/dL (12.0-15.0) 09/23/23 04:40 Hct 38.5 % (37-47) 09/23/23 04:40 Plt Count 220 K/mm3 (150-450) 09/23/23 04:40 CHEMISTRY Potassium 3.7 mmol/L (3.5-5.1) 09/22/23 22:12 Sodium 143 mmol/L (136-145) 09/22/23 22:12 BUN 22 mg/dL (7-18) H 09/22/23 22:12 Creatinine 0.86 mg/dL (0.55-1.02) 09/22/23 22:12 Glucose 119 mg/dL (74-106) H 09/22/23 22:12 COAG Pre-Assessment Diagnosis/Proposed Procedure Planned Operative Procedure(s): Cysto, Possible bladder biopsy, possible transurethral resection bladder tumor Anesthesia History 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 When Was Last Pacemaker Check QUESTION #4 FULL TEXT: You/Your Family Experience fever (hyperthermia) with Anesthesia Last Oral Intake Last Oral intake: Last Oral Intake NPO since Meds taken in AM with sips of water? Meds patient instructed to take am of surgery PONV PONV - forest resource specialist: PONV - forest resource specialist Female Yes 12/03/23 12:50 HX of Motion Sickness No 12/03/23 12:50 HX of N/V After Surgery No 12/03/23 12:50 Non-Smoker Yes 12/03/23 12:50 Duration of Surgery greater Yes 12/03/23 12:50 than 60 minutes Number of Risk Factors 3 12/03/23 12:50 PONV Score Moderate Risk 12/03/23 12:50 Height & Weight Height & Weight: Anesthesia: Height & Weight Height 5 ft 5 in 09/23/23 01:19 Respiratory Assessment Respiratory Assessment - forest resource specialist: Respiratory Tract Infection Hx - forest resource specialist Hx Respiratory Tract Infection No 12/03/23 12:50 STOP Sleep Apnea STOP Sleep Apnea - forest resource specialist: STOP Sleep Apnea - forest resource specialist Hx Hypertension No 12/03/23 12:50 Hx Sleep Apnea No 12/03/23 12:50 CPAP BIPAP Do you snore loudly (louder No 12/03/23 12:50 than talking or can be heard Do you often feel tired/ No 12/03/23 12:50 fatigued/ sleepy during daytime? Has anyone observed you stop No 12/03/23 12:50 breathing during sleep? STOP Results Negative 12/03/23 12:50 QUESTION #5 FULL TEXT : Do you snore loudly (louder than talking or can be heard through closed doors)? 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 Specify any problems Hx of Preganancy in last 3 No 12/03/23 12:50 Months Nurse Filling Out Transfusion VCHRISTIN 12/03/23 12:50 & Questions: Date: 12/03/23 12/03/23 12:50 Time: 12:51 12/03/23 12:50 Patient unable to answer at this time (ie. confused, unrespo /Reproduction History /Reproductive History - forest resource specialist: /Reproductive Hx- forest resource specialist Hx Now Gestational Age (in weeks): EDC: Hx Hx Para Hx Section SAB No 12/03/23 12:50 Active Medications Active Medications: Current Medications Generic Name Dose Route Start Last Admin Trade Name Freq PRN Reason Stop Dose Admin Cefazolin Sodium 2 gm/ Sodium 110 mls @ 150 mls/hr 12/12/23 08:25 Chloride IV 12/12/23 09:08 PREOP ONE Lactated Ringer's 1,000 mls @ 15 mls/hr 12/12/23 07:15 IV .Q48H RENATA PFSH Medical History High cholesterol Transitional cell carcinoma determined by biopsy of bladder Hematuria Bladder tumor Wears glasses Post-menopausal Depression Arthritis Shortness of breath on exertion Non-smoker Cardiology follow-up encounter History of stress test Status post hysteroscopy (~10/16/18) Simple endometrial hyperplasia without atypia Thickened endometrium Home Medications ?Medication ?Instructions ?Recorded ?Last Taken ?Type cholecalciferol (vitamin D3) 50 2,000 unit PO DAILY 08/26/18 12/09/23 History mcg (2,000 unit) capsule atorvastatin 40 mg tablet 40 mg PO DAILY 12/03/23 12/09/23 History multivitamin (Daily Multi-Vitamin 1 tab PO DAILY 12/03/23 12/09/23 History tablet) Allergy/AdvReac Type Severity Reaction Status Date / Time No Known Allergies Allergy Verified 12/12/23 07:16 Family History Mother Hypertension Father CVA (cerebral vascular accident) Surgical History Hx of cystoscopy S/P dilation and curettage (~06/11/23) Varicose vein of leg Social History adopted: No number of children: 3 current occupational status: retired sexually active: Yes Smoking Status: Never smoker alcohol intake: current alcohol intake frequency: holidays/special occasions only substance use type: does not use well-balanced diet: daily or most days caffeine: Yes Type: coffee Number of servings: 1 what type of physical activity do you participate in: walking frequency: 1-2 times per week seatbelt use: always do you feel safe at home: Yes additional social history: Review of Systems (Anesthesia) ROS Narrative System reviewed and no additional complaints, except as documented.
[2023-12-12 07:21] VITALS: BP 143/76; PULSE 63; RESP 16; TEMP 36.3; O2SAT 99; BMI 29.0
[2023-12-12] MEDS: Lactated Ringers 1,000 ML 15 ML IV (07:24)
[2023-12-12 07:30] LABS: Hematocrit 40.7 % (37-47); Hemoglobin 13.2 g/dL (12.0-15.0); Mean Corp Hgb Conc 32.4 g/dL (32-36); Mean Corpuscular Hgb 29.3 pg (27.0-32.0); Mean Corpuscular Volume 90.2 fL (81-99); Mean Platelet Vol. 9.8 fl (6.2-12.0); Platelet Count 196 K/mm3 (150-450); RBC Distribution Width CV 13.2 % (11.6-14.6); RBC Distribution Width SD 43.5 fl (35.1-43.9); Red Blood Count 4.51 M/mm3 (4.2-5.4); White Blood Count 4.2 K/mm3 (4.4-11.0)
[2023-12-12 07:50] LABS: Anion Gap 4 (5-15); BUN 24 mg/dL (7-18); BUN/Creat Ratio 28.2 RATIO (10-20); Calcium,Total 9.5 mg/dL (8.5-10.1); Chloride 110 mmol/L (98-107); Creatinine, Serum 0.85 mg/dL (0.55-1.02); EST Glomerular Filtration Rate 70 mL/min (>60); Est Glom Filt Rate - Afr Amer 85 mL/min (>60); Estimated Creatinine Clearance 64.89 ml/min; Glucose 97 mg/dL (74-106); Potassium 3.9 mmol/L (3.5-5.1); Sodium Level 144 mmol/L (136-145)
[2023-12-12] MEDS: Cefazolin 2 GM in 0.9% Normal Saline (100mL Bag) 100 ML IV (08:15)
[2023-12-12 08:40] VITALS: BP 109/71; BP 143/76; PULSE 73; RESP 16; TEMP 37.1; O2SAT 92
--- NOTE | 2023-12-12 08:40 | PCM.POST.ANE ---
Anesthesia: Postop Eval I Current Vital Signs Temperature: 98.5 F Pulse Rate: 74 Blood Pressure: 109/71 Respiratory Rate: 16 Pulse Ox: 93 Oxygen Delivery Method: Room Air Assessment Airway patent: Yes Spontaneous unlabored respirations: Yes Mental status: Awake and Calm nausea: No Vomiting: No Anesthesia Complication: No Fluid Hydration Crystalloid volume administer (ml): 400 Total IV fluid infused: 400 Progress Note Anesthesia document: Postop Eval 1 completed: Yes
[2023-12-12 08:45] VITALS: BP 109/71; BP 110/82; BP 143/76; PULSE 74; RESP 16; TEMP 36.9; O2SAT 93
[2023-12-12 08:50] VITALS: BP 127/93; BP 143/76; PULSE 73; RESP 16; O2SAT 94
--- NOTE | 2023-12-12 08:50 | EX.PCM.DISCH ---
Discharge Instructions Diet Discharge Diet: No restrictions Activity Discharge Activity: Return to Normal Activity Dressing / Incision Call your doctor if you observe: Fever of 101 or Higher, Inability to urinate and Inability to have a bowel movement Follow Up Care Please Follow Up With: Kamilla Ashley MD When: The office will call her to make arrangements for her next cystoscopy. Test Results: Test results from this visit will be discussed in further detail at your follow-up appointment, if applicable. Discharge Plan Admission Attending Provider: Kamilla Ashley Primary Care Provider: Miranda Almeida Instructions Print Language: Swedish Discharge Orders/Prescriptions Prescriptions: Continued cholecalciferol (vitamin D3) 2,000 unit capsule 2,000 unit PO DAILY atorvastatin 40 mg tablet 40 mg PO DAILY multivitamin [Daily Multi-Vitamin] Tablet 1 tab PO DAILY Referrals / Follow Up: Miranda Almeida DO [Primary Care Provider] - Disposition Disposition (needs filled in before D/C Order can be placed): Home, Self Care
--- NOTE | 2023-12-12 08:50 | PCM.OPRPT ---
Report of Operation Date of Procedure: 12/12/23 Pre-Operative Diagnosis: Transitional cell carcinoma of the bladder Post-Operative Diagnosis: Same Surgery/Procedure Performed:: Cystoscopy Type of Anesthesia: MAC Specimen's removed: None Description of Procedure: The patient is a 68-year-old female who had a transurethral resection of a bladder tumor 3 months ago. She is unable to have cystoscopic evaluation done in the office and now presents for surveillance cystoscopy under anesthesia. Informed consent was obtained. The patient was taken the operating room and placed on the operating room table. Anesthesia monitored the head, neck, airway, IV access and vital signs throughout the case. Once anesthesia was appropriately administered, she was placed into dorsolithotomy position and was prepped and draped in usual sterile fashion. The cystoscope with 70 degree lens was inserted through the urethra under direct visualization into the urinary bladder. The urethra was normal. The bladder mucosa was visualized in its entirety revealing no evidence of mass, erythema or ulceration. The area of previous resection was visible and clean with no evidence of regrowth or new vasculature. The cystocele was reduced in order to thoroughly visualize all of the bladder mucosa. No areas of abnormality were identified. The bladder was then emptied and the cystoscope was removed. She was awakened and taken to the recovery room in good condition. There were no complications during the procedure. Complications None Admit VTE Documentation VTE Present on Admission: Yes VTE Mechan Device Prophylaxis: SCD's VTE Pharm Prophylaxis ordered?: No Reason prophylaxis not ordered:: Treatment Not Indicated
[2023-12-12 09:00] VITALS: BP 120/76; BP 143/76; PULSE 66; RESP 16; TEMP 36.7; O2SAT 93
[2023-12-12 09:06] VITALS: BP 143/76
--- NOTE | 2023-12-12 09:07 | POSTOPAN2_ITS ---
Anesthesia Postop Eval I Sum Postop Eval Completion status Anesthesia document: Postop Eval 1 completed: Yes Anesthesia Postop Eval I Summary Anesthesia Postop Eval I Summary: Anesthesia Postop Eval I: Assessment Summary Airway patent Yes 12/12/23 08:45 CERAMIC ARTIST.[email or web address] Spontaneous unlabored Yes 12/12/23 08:45 CERAMIC ARTIST.GDOTT respirations Mental status Awake,Calm 12/12/23 08:45 CERAMIC ARTIST.GDOTT nausea No 12/12/23 08:45 CERAMIC ARTIST.GDOTT Vomiting No 12/12/23 08:45 CERAMIC ARTIST.GDOTT Anesthesia Postop Eval I: Fluid Summary Crystalloid volume administer 400 12/12/23 08:45 CERAMIC ARTIST.GDOTT (ml) Colloids volume administered ( ml) Blood Product volume administered (ml) Total IV fluid infused 400 12/12/23 08:45 CERAMIC ARTIST.GDOTT Anesthesia Postop Eval I: Summary Notes Anesthesia Complication No 12/12/23 08:45 CERAMIC ARTIST.GDOTT Anesthesia Complication Comment: Post-operative progress note Anesthesia: Postop Eval II Evaluation Mental status: Awake Pain Level: 0 nausea: No Vomiting: No Complications Anesthesia Complication: No
--- NOTE | 2023-12-12 09:07 | PCM.POSTANE2 ---
Anesthesia Postop Eval I Sum Postop Eval Completion status Anesthesia document: Postop Eval 1 completed: Yes Anesthesia Postop Eval I Summary Anesthesia Postop Eval I Summary: Anesthesia Postop Eval I: Assessment Summary Airway patent Yes 12/12/23 08:45 BLOCKER AND CUTTER CONTACT LENS.GDOTT Spontaneous unlabored Yes 12/12/23 08:45 BLOCKER AND CUTTER CONTACT LENS.GDOTT respirations Mental status Awake,Calm 12/12/23 08:45 BLOCKER AND CUTTER CONTACT LENS.GDOTT nausea No 12/12/23 08:45 BLOCKER AND CUTTER CONTACT LENS.GDOTT Vomiting No 12/12/23 08:45 BLOCKER AND CUTTER CONTACT LENS.GDOTT Anesthesia Postop Eval I: Fluid Summary Crystalloid volume administer 400 12/12/23 08:45 BLOCKER AND CUTTER CONTACT LENS.GDOTT (ml) Colloids volume administered ( ml) Blood Product volume administered (ml) Total IV fluid infused 400 12/12/23 08:45 BLOCKER AND CUTTER CONTACT LENS.GDOTT Anesthesia Postop Eval I: Summary Notes Anesthesia Complication No 12/12/23 08:45 BLOCKER AND CUTTER CONTACT LENS.GDOTT Anesthesia Complication Comment: Post-operative progress note Anesthesia: Postop Eval II Evaluation Mental status: Awake Pain Level: 0 nausea: No Vomiting: No Complications Anesthesia Complication: No
== END 2023-12-12 09:18 | disposition home or self-care (01) ==
LOC: SDC 07:02 → AC 07:02
PROVIDERS: PCP Family Medicine; Referring Provider Urology; Visit Provider Urology
PROC: 0TBB8ZZ Excision of Bladder, Via Natural or Artificial Opening Endoscopic (ICD-10-PCS; CPT 52000; principal; 2023-12-12 08:15)
DX: C67.9 Malignant neoplasm of bladder, unspecified (principal); Z79.899 Other long term (current) drug therapy
CPT/HCPCS: 52000; 00910; 80048; 85027; J7120; J2405

== ENCOUNTER → 2024-03-11 | Outpatient (CLI) | payer MEDICARE, OTHER, SELFPAY | END | disposition home or self-care (01) | PROVIDERS: PCP Family Medicine; Referring Provider Urology; Visit Provider Urology | DX: N39.0 Urinary tract infection, site not specified (principal) | CPT/HCPCS: 87077; 87086; 87088; 87186 ==

== ENCOUNTER 2024-03-19 07:48 | Day surgery (SDC) | payer MEDICARE, OTHER, SELFPAY ==
[2024-03-19] VITALS (8 sets, daily range): BP systolic 100–136; BP diastolic 59–78; PULSE 67–79; RESP 16–18; TEMP 36.1–37.1; O2SAT 93–99; BMI 29.0
--- NOTE | 2024-03-19 08:28 | PCM.PRE.AN2 ---
ASA Classification* ASA Classification ASA Classification: 2 Assessment & Plan Anesthesia* Anesthesia Assessment Anesthesia Assessment: Discussed sedation and/or anesthesia options, risks, benefits, and alternatives with patient/parents/legal guardian/POA. Questions invited. The patient/parents/legal guardian/POA seems to understand and agrees to proceed with anesthesia plan. Reviewed the physical assessment, medical history, allergy history and patient home medications list prior to surgery/procedure/anesthetic and documented any changes. Performed airway and anesthesia risk assessments. Anesthesia Type Anesthesia Type: MAC Anesthesia Focused Assessment* Temperature: 97 F Pulse Rate: 72 Blood Pressure: 136/72 Respiratory Rate: 16 Pulse Ox: 99 Airway Assessment Mouth opens: >3 cm Mallampati Score: II Focused Labs Anesthesia Preop lab: CBC WBC 4.2 K/mm3 (4.4-11.0) L 12/12/23 07:21 RBC 4.51 M/mm3 (4.2-5.4) 12/12/23 07:21 Hgb 13.2 g/dL (12.0-15.0) 12/12/23 07:21 Hct 40.7 % (37-47) 12/12/23 07:21 Plt Count 196 K/mm3 (150-450) 12/12/23 07:21 CHEMISTRY Potassium 3.9 mmol/L (3.5-5.1) 12/12/23 07:21 Sodium 144 mmol/L (136-145) 12/12/23 07:21 BUN 24 mg/dL (7-18) H 12/12/23 07:21 Creatinine 0.85 mg/dL (0.55-1.02) 12/12/23 07:21 Glucose 97 mg/dL (74-106) 12/12/23 07:21 COAG Pre-Assessment Diagnosis/Proposed Procedure Planned Operative Procedure(s): CYSTO,POSS BLADDER BIOPSY Anesthesia History 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 When Was Last Pacemaker Check QUESTION #4 FULL TEXT: You/Your Family Experience fever (hyperthermia) with Anesthesia Last Oral Intake Last Oral intake: Last Oral Intake NPO since 06:00 03/19/24 08:06 Meds taken in AM with sips of No 03/19/24 08:06 water? Meds patient instructed to take am of surgery PONV PONV - milking machine operator: PONV - milking machine operator Female Yes 03/12/24 09:00 HX of Motion Sickness No 03/12/24 09:00 HX of N/V After Surgery No 03/12/24 09:00 Non-Smoker Yes 03/12/24 09:00 Duration of Surgery greater No 03/12/24 09:00 than 60 minutes Number of Risk Factors 2 03/12/24 09:00 PONV Score Moderate Risk 03/12/24 09:00 Height & Weight Height & Weight: Anesthesia: Height & Weight Height 5 ft 5 in 03/19/24 08:06 Weight: 79 kg 03/19/24 08:06 Body Mass Index (BMI) 29.0 03/19/24 08:06 Respiratory Assessment Respiratory Assessment - milking machine operator: Respiratory Tract Infection Hx - milking machine operator Hx Respiratory Tract Infection No 03/12/24 09:00 STOP Sleep Apnea STOP Sleep Apnea - milking machine operator: STOP Sleep Apnea - milking machine operator Hx Hypertension No 03/12/24 09:00 Hx Sleep Apnea No 03/12/24 09:00 CPAP BIPAP Do you snore loudly (louder Yes 03/12/24 09:00 than talking or can be heard Do you often feel tired/ No 03/12/24 09:00 fatigued/ sleepy during daytime? Has anyone observed you stop No 03/12/24 09:00 breathing during sleep? STOP Results Negative 03/12/24 09:00 QUESTION #5 FULL TEXT : Do you snore loudly (louder than talking or can be heard through closed doors)? 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 Specify any problems Hx of Preganancy in last 3 No 03/12/24 09:00 Months Nurse Filling Out Transfusion DSCHRIBER 03/12/24 09:00 & Questions: Date: 03/12/24 03/12/24 09:00 Time: 09:03/12/24 09:00 Patient unable to answer at this time (ie. confused, unrespo /Reproduction History /Reproductive History - milking machine operator: /Reproductive Hx- milking machine operator Hx Now No 03/12/24 09:00 Gestational Age (in weeks): EDC: Hx Hx Para Hx Section SAB No 03/12/24 09:00 Active Medications Active Medications: Current Medications Generic Name Dose Route Start Last Admin Trade Name Freq PRN Reason Stop Dose Admin Cefazolin Sodium 2 gm/ N/A 20 mls @ 400 mls/hr 03/19/24 09:10 IV 03/19/24 09:12 PREOP ONE PFSH Medical History High cholesterol Transitional cell carcinoma determined by biopsy of bladder Hematuria Bladder tumor Wears glasses Post-menopausal Depression Arthritis Shortness of breath on exertion Non-smoker Cardiology follow-up encounter History of stress test Simple endometrial hyperplasia without atypia Thickened endometrium Home Medications ?Medication ?Instructions ?Recorded ?Last Taken ?Type cholecalciferol (vitamin D3) 50 2,000 unit PO DAILY 08/26/18 03/18/24 History mcg (2,000 unit) capsule multivitamin (Daily Multi-Vitamin 1 tab PO DAILY 12/03/23 03/18/24 History tablet) rosuvastatin 5 mg tablet (Crestor) 5 mg PO DAILY 03/12/24 03/18/24 History cephalexin 500 mg capsule 500 mg PO TID 03/19/24 03/18/24 History Allergy/AdvReac Type Severity Reaction Status Date / Time No Known Allergies Allergy Verified 03/19/24 08:00 Family History Mother Hypertension Father CVA (cerebral vascular accident) Surgical History History of hysteroscopy Hx of varicose vein ligation and stripping History of cystoscopy Hx of cystoscopy S/P dilation and curettage (~06/11/23) Social History adopted: No number of children: 3 current occupational status: retired sexually active: Yes Smoking Status: Never smoker alcohol intake: current alcohol intake frequency: holidays/special occasions only substance use type: does not use well-balanced diet: daily or most days caffeine: Yes Type: coffee Number of servings: 1 what type of physical activity do you participate in: walking frequency: 1-2 times per week seatbelt use: always do you feel safe at home: Yes additional social history: Review of Systems (Anesthesia) ROS Narrative System reviewed and no additional complaints, except as documented.
[2024-03-19] MEDS: Cefazolin 2 GM in Syringe IV (09:45)
--- NOTE | 2024-03-19 09:56 | OP.PCM_ITS ---
Operative Report (Standard) Operative Information Surgery/Procedure Performed: Cystoscopy Surgeon: Kamilla Ashley Date of Procedure: 03/19/24 Procedure Start Time: :50 Procedure Stop Time: :52 Pre-Operative Diagnosis: History of bladder transitional cell carcinoma Post-Operative Diagnosis: Same Select all DRAINS/GRAFTS/IMPLANTS that apply: None Type of Anesthesia: MAC Estimated Blood Loss: Minimal Specimen collected: No Description of surgery: The patient is a 68-year-old female with a history of transitional cell carcinoma of the bladder. She is unable to tolerate office cystoscopy and presents for surveillance cystoscopy today. Informed consent was obtained. She was taken to the operating room and placed on the operating room table. Anesthesia monitored the head, neck, airway, IV access and vital signs throughout the case. Once anesthesia was appropriate ministered, she was placed into dorsolithotomy position and was prepped and draped in usual sterile fashion. The cystoscope was inserted through the urethra under direct v isualization into the urinary bladder. With a 70 degree lens, the entire bladder lumen was directly visualized finding no evidence of mass, erythema, ulceration or foreign body. The area of previous resection was specifically carefully visualized as well finding no evidence of recurrence. The patient's bladder was then emptied and the cystoscope was removed. She was awakened and taken to the recovery room in good condition. There were no complications during this procedure. Surgical Findings: No recurrence of transitional cell carcinoma of the bladder Retail Receiving Clerk sofa inspector: No Complications Complications: No Admit VTE Documentation VTE Present on Admission: Yes VTE Mechan Device Prophylaxis: SCD's VTE Pharm Prophylaxis ordered?: No Reason prophylaxis not ordered: Treatment Not Indicated
--- NOTE | 2024-03-19 09:56 | EX.PCM.DISCH ---
Discharge Instructions Diet Discharge Diet: No restrictions Activity Discharge Activity: Return to Normal Activity Dressing / Incision Call your doctor if you observe: Fever of 101 or Higher, Inability to urinate and Inability to have a bowel movement Follow Up Care Please Follow Up With: Kamilla Ashley MD When: The office will call to make arrangements for an appointment in 3 months. Test Results: Test results from this visit will be discussed in further detail at your follow-up appointment, if applicable. Discharge Plan Admission Attending Provider: Kamilla Ashley Primary Care Provider: Miranda Almeida Instructions Print Language: Citizen Of [place] Discharge Orders/Prescriptions Prescriptions: Continued cholecalciferol (vitamin D3) 2,000 unit capsule 2,000 unit PO DAILY multivitamin [Daily Multi-Vitamin] Tablet 1 tab PO DAILY rosuvastatin [Crestor] 5 mg tablet 5 mg PO DAILY cephalexin 500 mg capsule 500 mg PO TID Referrals / Follow Up: Miranda Almeida, [Primary Care Provider] - Disposition Disposition (needs filled in before D/C Order can be placed): Home, Self Care
--- NOTE | 2024-03-19 09:58 | PCM.POST.ANE ---
Anesthesia: Postop Eval I Current Vital Signs Temperature: 97.3 F Pulse Rate: 78 Blood Pressure: 107/71 Respiratory Rate: 18 Pulse Ox: 93 Assessment Airway patent: Yes Spontaneous unlabored respirations: Yes nausea: No Vomiting: No Anesthesia Complication: No Fluid Hydration Crystalloid volume administer (ml): 10 Total IV fluid infused: 10 Progress Note Anesthesia document: Postop Eval 1 completed: Yes
--- NOTE | 2024-03-19 10:08 | POSTOPAN2_ITS ---
Anesthesia Postop Eval I Sum Postop Eval Completion status Anesthesia document: Postop Eval 1 completed: Yes Anesthesia Postop Eval I Summary Anesthesia Postop Eval I Summary: Anesthesia Postop Eval I: Assessment Summary Airway patent Yes 03/19/24 09:[address] [email or web address] Spontaneous unlabored Yes 03/19/24 09:58 COURT [email or web address] respirations Mental status nausea No 03/19/24 09:[address] USHER.CSIR Vomiting No 03/19/24 09:[address] [email or web address] Anesthesia Postop Eval I: Fluid Summary Crystalloid volume administer 10 03/19/24 09:[address] USHER.CSIR (ml) Colloids volume administered ( ml) Blood Product volume administered (ml) Total IV fluid infused 10 03/19/24 09:[address] USHER.CSIR Anesthesia Postop Eval I: Summary Notes Anesthesia Complication No 03/19/24 09:[address] USHER.CSIR Anesthesia Complication Comment: Post-operative progress note Anesthesia: Postop Eval II Evaluation Mental status: Awake Pain Level: 0 nausea: No Vomiting: No
--- NOTE | 2024-03-19 10:08 | PCM.POSTANE2 ---
Anesthesia Postop Eval I Sum Postop Eval Completion status Anesthesia document: Postop Eval 1 completed: Yes Anesthesia Postop Eval I Summary Anesthesia Postop Eval I Summary: Anesthesia Postop Eval I: Assessment Summary Airway patent Yes 03/19/24 09:58 CRUSHING MILL OPERATOR.[email or web address] Spontaneous unlabored Yes 03/19/24 09:58 CRUSHING MILL OPERATOR.CSIR respirations Mental status nausea No 03/19/24 09:58 CRUSHING MILL OPERATOR.CSIR Vomiting No 03/19/24 09:58 CRUSHING MILL OPERATOR.CSIR Anesthesia Postop Eval I: Fluid Summary Crystalloid volume administer 10 03/19/24 09:58 CRUSHING MILL OPERATOR.CSIR (ml) Colloids volume administered ( ml) Blood Product volume administered (ml) Total IV fluid infused 10 03/19/24 09:58 CRUSHING MILL OPERATOR.CSIR Anesthesia Postop Eval I: Summary Notes Anesthesia Complication No 03/19/24 09:58 CRUSHING MILL OPERATOR.CSIR Anesthesia Complication Comment: Post-operative progress note Anesthesia: Postop Eval II Evaluation Mental status: Awake Pain Level: 0 nausea: No Vomiting: No
== END 2024-03-19 10:53 | disposition home or self-care (01) ==
LOC: SDC 07:48 → AC 07:49
PROVIDERS: PCP Family Medicine; Referring Provider Urology; Visit Provider Urology
PROC: 0TJB8ZZ Inspection of Bladder, Via Natural or Artificial Opening Endoscopic (ICD-10-PCS; CPT 52000; principal; 2024-03-19 09:00)
DX: C67.9 Malignant neoplasm of bladder, unspecified (principal); E78.00 Pure hypercholesterolemia, unspecified; N81.2 Incomplete uterovaginal prolapse; N95.2 Postmenopausal atrophic vaginitis; N39.43 Post-void dribbling; N36.2 Urethral caruncle
CPT/HCPCS: 52000; 00910; A4216; J2405

== ENCOUNTER → 2024-07-03 | Outpatient (CLI) | payer MEDICARE, OTHER, SELFPAY ==
[2024-07-10 19:07] LABS: HPV APTIMA, High Risk Negative (Negative)
== END | disposition home or self-care (01) ==
LOC: LABSPEC 16:24
PROVIDERS: PCP Family Medicine; Referring Provider Obstetrics & Gynecology; Visit Provider Obstetrics & Gynecology
DX: Z12.4 Encounter for screening for malignant neoplasm of cervix (principal)
CPT/HCPCS: 87624; 88175; G0145

== ENCOUNTER 2024-07-09 11:34 | Day surgery (SDC) | payer MEDICARE, OTHER, SELFPAY ==
[2024-07-09] VITALS (10 sets, daily range): BP systolic 110–146; BP diastolic 66–85; PULSE 64–77; RESP 14–16; TEMP 36.2–36.8; O2SAT 97–100; BMI 29.1
[2024-07-09] MEDS: 0.9% Normal Saline (1000mL) 1,000 ML 15 ML IV (12:11)
--- NOTE | 2024-07-09 12:23 | PRE.ANES_ITS ---
ASA Classification* ASA Classification ASA Classification: 2 Assessment & Plan Anesthesia* Anesthesia Assessment Anesthesia Assessment: Discussed sedation and/or anesthesia options, risks, benefits, and alternatives with patient/parents/legal guardian/POA. Questions invited. The patient/parents/legal guardian/POA seems to understand and agrees to proceed with anesthesia plan. Reviewed the physical assessment, medical history, allergy history and patient home medications list prior to surgery/procedure/anesthetic and documented any changes. Performed airway and anesthesia risk assessments. Anesthesia Type Anesthesia Type: MAC History Source History Obtained from:: Patient and Chart Anesthesia Focused Assessment* Temperature: 97.9 F Pulse Rate: 66 Blood Pressure: 146/66 Respiratory Rate: 16 Pulse Ox: 98 Oxygen Delivery Method: Room Air Airway Assessment Mouth opens: >3 cm Mallampati Score: II Teeth Condition: Intact Neck Range of motion (ROM): Full ROM Focused Labs Anesthesia Preop lab: CBC WBC 4.2 K/mm3 (4.4-11.0) L 12/12/23 07:21 12/12/23 RBC 4.51 M/mm3 (4.2-5.4) 12/12/23 07:21 12/12/23 Hgb 13.2 g/dL (12.0-15.0) 12/12/23 07:21 12/12/23 Hct 40.7 % (37-47) 12/12/23 07:21 12/12/23 Plt Count 196 K/mm3 (150-450) 12/12/23 07:21 12/12/23 CHEMISTRY Potassium 3.9 mmol/L (3.5-5.1) 12/12/23 07:21 12/12/23 Sodium 144 mmol/L (136-145) 12/12/23 07:21 12/12/23 BUN 24 mg/dL (7-18) H 12/12/23 07:21 12/12/23 Creatinine 0.85 mg/dL (0.55-1.02) 12/12/23 07:21 12/12/23 Glucose 97 mg/dL (74-106) 12/12/23 07:21 12/12/23 COAG Pre-Assessment Diagnosis/Proposed Procedure Planned Operative Procedure(s): CYSTO UNDER ANESTHESIA Anesthesia History 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 When Was Last Pacemaker Check QUESTION #4 FULL TEXT: You/Your Family Experience fever (hyperthermia) with Anesthesia Last Oral Intake Last Oral intake: Last Oral Intake NPO since 07:00 07/09/24 12:00 Meds taken in AM with sips of water? 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 - assisted living housekeeper Female Yes 06/25/24 14:21 HX of Motion Sickness No 06/25/24 14:21 HX of N/V After Surgery No 06/25/24 14:21 Non-Smoker Yes 06/25/24 14:21 Duration of Surgery greater No 06/25/24 14:21 than 60 minutes Number of Risk Factors 2 06/25/24 14:21 PONV Score Moderate Risk 06/25/24 14:21 Height & Weight Height & Weight: Anesthesia: Height & Weight Height 5 ft 5 in 07/09/24 12:00 Weight: 79.379 kg 07/09/24 12:00 Body Mass Index (BMI) 29.1 07/09/24 12:00 Respiratory Assessment Respiratory Assessment - assisted living housekeeper: Respiratory Tract Infection Hx - assisted living housekeeper Hx Respiratory Tract Infection No 06/25/24 14:21 STOP Sleep Apnea STOP Sleep Apnea - assisted living housekeeper: STOP Sleep Apnea - assisted living housekeeper Hx Hypertension No 06/25/24 14:21 Hx Sleep Apnea No 06/25/24 14:21 CPAP BIPAP Do you snore loudly (louder Yes 06/25/24 14:21 than talking or can be heard Do you often feel tired/ No 06/25/24 14:21 fatigued/ sleepy during daytime? Has anyone observed you stop No 06/25/24 14:21 breathing during sleep? STOP Results Negative 06/25/24 14:21 QUESTION #5 FULL TEXT : Do you snore loudly (louder than talking or can be heard through closed doors)? 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 Specify any problems Hx of Preganancy in last 3 No 06/25/24 14:21 Months Nurse Filling Out Transfusion DSCHRIBER 06/25/24 14:21 & Questions: Date: 06/25/24 06/25/24 14:21 Time: 14:22 06/25/24 14:21 Patient unable to answer at this time (ie. confused, unrespo /Reproduction History /Reproductive History - assisted living housekeeper: /Reproductive Hx- assisted living housekeeper Hx Now No 06/25/24 14:21 Gestational Age (in weeks): EDC: Hx Hx Para Hx Section SAB No 07/03/24 14:42 Active Medications Active Medications: Current Medications Generic Name Dose Route Start Last Admin Trade Name Freq PRN Reason Stop Dose Admin Sodium Chloride 1,000 mls @ 15 mls/hr 07/09/24 11:40 07/09/24 12:11 IV 07/15/24 00:59 15 mls/hr .Q48H RENATA Administration Protocol PFSH Medical History Bladder cancer Cancer High cholesterol Transitional cell carcinoma determined by biopsy of bladder Hematuria Bladder tumor Wears glasses Post-menopausal Depression Arthritis Shortness of breath on exertion Non-smoker Cardiology follow-up encounter History of stress test Simple endometrial hyperplasia without atypia Thickened endometrium Home Medications ?Medication ?Instructions ?Recorded ?Last Taken ?Type cholecalciferol (vitamin D3) 50 2,000 unit PO DAILY 07/07/24 History mcg (2,000 unit) capsule multivitamin (Daily Multi-Vitamin 1 tab PO DAILY 12/0203/18/24 History tablet) rosuvastatin 5 mg tablet (Crestor) 5 mg PO QHS 4 07/08/24 History coenzyme Q10 100 mg capsule (Co 200 mg PO DAILY 07/06/24 History Q-10) Allergy/AdvReac Type Severity Reaction Status Date / Time No Known Allergies Allergy Verified 07/09/24 11:57 Family History Mother Hypertension Father CVA (cerebral vascular accident) Surgical History History of hysteroscopy Hx of varicose vein ligation and stripping History of cystoscopy Hx of cystoscopy S/P dilation and curettage (~06/11/23) Social History (Updated 07/03/24 @ 14:52 by Miranda Campos) adopted: No number of children: 3 current occupational status: retired sexually active: Yes Smoking Status: Never smoker alcohol intake: current alcohol intake frequency: holidays/special occasions only substance use type: does not use well-balanced diet: daily or most days caffeine: Yes Type: coffee Number of servings: 1 what type of physical activity do you participate in: none seatbelt use: always do you feel safe at home: Yes additional social history: Review of Systems (Anesthesia) ROS Narrative System reviewed and no additional complaints, except as documented.
--- NOTE | 2024-07-09 13:26 | EX.PCM.DISCH ---
Discharge Instructions Diet Discharge Diet: No restrictions Activity Discharge Activity: Return to Normal Activity May resume sexual activity in: No Restrictions Dressing / Incision Call your doctor if you observe: Fever of 101 or Higher, Inability to urinate and Inability to have a bowel movement Follow Up Care Please Follow Up With: Kamilla Ashley MD When: The office will call her for follow-up arrangements. Test Results: Test results from this visit will be discussed in further detail at your follow-up appointment, if applicable. Discharge Plan Admission Attending Provider: Kamilla Ashley Primary Care Provider: Miranda Almeida Instructions Print Language: [place] Discharge Orders/Prescriptions Prescriptions: Continued cholecalciferol (vitamin D3) 2,000 unit capsule 2,000 unit PO DAILY multivitamin [Daily Multi-Vitamin] Tablet 1 tab PO DAILY rosuvastatin [Crestor] 5 mg tablet 5 mg PO QHS coenzyme Q10 [Co Q-10] 100 mg capsule 200 mg PO DAILY Referrals / Follow Up: Miranda Almeida DO [Primary Care Provider] - Disposition Disposition (needs filled in before D/C Order can be placed): Home, Self Care
--- NOTE | 2024-07-09 13:27 | PCM.OPRPT ---
Operative Report (Standard) Operative Information Date of Procedure: 07/09/24 Pre-Operative Diagnosis: History of transitional cell carcinoma of the bladder Post-Operative Diagnosis: Same Surgery/Procedure Performed: Cystoscopy block mason: No Type of Anesthesia: MAC RN Documented Start/Stop Times: Operation Date: 07/09/24 13:35 Case Time Into Pre-Op 07/09/24 11:39 Out of Pre-Op 07/09/24 13:29 Anesthesia Start 07/09/24 13:32 Into Room 07/09/24 13:32 Procedure Start 07/09/24 13:43 Procedure End 07/09/24 13:46 Procedure Start Time: 13:43 Procedure Stop Time: 13:46 Select all DRAINS/GRAFTS/IMPLANTS that apply: None Estimated Blood Loss: <5cc Specimen collected: No Description of surgery: The patient is a 69-year-old female who had a transitional cell carcinoma removed from her bladder approximately 1 year ago and she is here for cystoscopic surveillance. Informed consent was obtained. The patient was taken to the operating room and placed on the operating room table. Anesthesia monitored the head, neck, airway, IV access and vital signs throughout the case. Once anesthesia was appropriately administered, she was placed into dorsolithotomy position was prepped and draped in usual sterile fashion. The cystoscope was inserted through the urethra under direct visualization into the urinary bladder. The bladder mucosa in its entirety was visualized directly. There was no evidence of mass, erythema, ulceration or foreign. The patient's bladder was emptied and the cystoscope was removed. She was awakened and taken to the recovery room in good condition. There were no complications during this procedure. Surgical Findings: No recurrence identified Complications Complications: No Admit VTE Documentation VTE Present on Admission: Yes VTE Mechan Device Prophylaxis: SCD's VTE Pharm Prophylaxis ordered?: No Reason prophylaxis not ordered: Treatment Not Indicated
--- NOTE | 2024-07-09 14:03 | PCM.POST.ANE ---
Anesthesia: Postop Eval I Current Vital Signs Temperature: 97.2 F Pulse Rate: 77 Blood Pressure: 128/72 Respiratory Rate: 14 Pulse Ox: 98 Oxygen Delivery Method: Simple Mask Assessment Airway patent: Yes Spontaneous unlabored respirations: Yes Mental status: Awake nausea: No Vomiting: No Anesthesia Complication: No Fluid Hydration Crystalloid volume administer (ml): 500 Total IV fluid infused: 500 Progress Note Anesthesia document: Postop Eval 1 completed: Yes
--- NOTE | 2024-07-09 16:19 | POSTOPAN2_ITS ---
Anesthesia Postop Eval I Sum Postop Eval Completion status Anesthesia document: Postop Eval 1 completed: Yes Anesthesia Postop Eval I Summary Anesthesia Postop Eval I Summary: Anesthesia Postop Eval I: Assessment Summary Airway patent Yes 07/09/24 14:04 [email or web address] [email or web address] Spontaneous unlabored Yes 07/09/24 14:04 MILKER [email or web address] respirations Mental status Awake 07/09/24 14:04 MILKER [email or web address] nausea No 07/09/24 14:04 MILKER [email or web address].HBARR Vomiting No 07/09/24 14:04 MILKER [email or web address] Anesthesia Postop Eval I: Fluid Summary Crystalloid volume administer 500 07/09/24 14:04 MILKER [email or web address] (ml) Colloids volume administered ( ml) Blood Product volume administered (ml) Total IV fluid infused 500 07/09/24 14:04 MILKER [email or web address].HBARR Anesthesia Postop Eval I: Summary Notes Anesthesia Complication No 07/09/24 14:04 MILKER [email or web address].HBARR Anesthesia Complication Comment: Post-operative progress note Anesthesia: Postop Eval II Evaluation Mental status: Awake and Calm Pain Level: 0 nausea: No Vomiting: No Complications Anesthesia Complication: No
--- NOTE | 2024-07-09 16:19 | PCM.POSTANE2 ---
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 nausea No 07/09/24 14:04 VISUAL EDUCATION TEACHER.HBARR Vomiting No 07/09/24 14:04 VISUAL EDUCATION TEACHER.HBARR Anesthesia Postop Eval I: Fluid Summary Crystalloid volume administer 500 07/09/24 14:04 VISUAL EDUCATION TEACHER.HBARR (ml) Colloids volume administered ( ml) Blood Product volume administered (ml) Total IV fluid infused 500 07/09/24 14:04 VISUAL EDUCATION TEACHER.HBARR Anesthesia Postop Eval I: Summary Notes Anesthesia Complication No 07/09/24 14:04 VISUAL EDUCATION TEACHER.HBARR Anesthesia Complication Comment: Post-operative progress note Anesthesia: Postop Eval II Evaluation Mental status: Awake and Calm Pain Level: 0 nausea: No Vomiting: No Complications Anesthesia Complication: No
== END 2024-07-09 14:51 | disposition home or self-care (01) ==
LOC: SDC 11:34 → AC 11:36
PROVIDERS: PCP Family Medicine; Referring Provider Urology; Visit Provider Urology
PROC: 0TJB8ZZ Inspection of Bladder, Via Natural or Artificial Opening Endoscopic (ICD-10-PCS; CPT 52000; principal; 2024-07-09 13:25)
DX: Z08 Encounter for follow-up examination after completed treatment for malignant neoplasm (principal); Z85.51 Personal history of malignant neoplasm of bladder; N81.2 Incomplete uterovaginal prolapse; N39.3 Stress incontinence (female) (male); N39.43 Post-void dribbling; E78.00 Pure hypercholesterolemia, unspecified; Z79.899 Other long term (current) drug therapy
CPT/HCPCS: 52000; 00910; J2405

== ENCOUNTER 2024-09-24 09:00 | Outpatient (RCR) | payer MEDICARE, SELFPAY ==
--- NOTE | 2024-07-22 14:41 | HP.PTEVAL ---
Patient's Visit Information Visit Information Visit Information: VONDA HUMMEL is a 69 year old F referred to Physical Therapy by Dr. Kamilla Ashley MD with a diagnosis of VAHID AND PROLAPSE. Date of Evaluation: 07/22/24 Physical Therapist: Clau Garcia PT, Cert MDT Visit Plan Frequency: 1x/Week Duration: 2-4 Months Plan: PF THERAPY FOR STRENGTHENING, LENGTHENING/RELAXATION AND ENDURANCE TRAINING. HEALTHY BLADDER, BACK AND POSTURE HABIT EDUCATION. TRAINING IN COORDINATION OF PELVIC FLOOR MUSCULATURE WITH HIP AND CORE (TRANSVERSE ABDOMINUS) MUSCULATURE. CORE STRENGTHENING. ART LE ROM, STRETCHING AND STRENGTHENING. TRAINING IN ABDOMINAL CAVITY PRESSURE MGMT WITH ADL'S. Subjective Subjective: Work/Leisure: RETIRED. WORKING ONCE A WEEK AT AN [employer] Present symptoms: CONSTANT DULL PRESSURE IN VAGINAL AREA. A LITTLE BIT OF URINARY LEAKING DURING THE DAY AND AT NIGHT. WEARING ONE LIGHT PAD A DAY. INTERMITTENT L HIP PAIN. Present since: ABOUT 4 YEARS AGO Is it getting better, worse or staying the same: GETTING WORSE Commenced as a result of: NO APPARENT REASON Symptoms at onset: HEAVYNESS Worse: PRESSURE INCREASES RANDOMLY. VAHID - LAUGHING COUGHING AND SNEEZING. Better: NAPROXEN AND IBPROFEN Disturbed sleep: VOIDING ABOUT 5 TIMES A DAY AND ONCE AT NIGHT. Previous history/Previous treatment: NO PRIOR PELVIC FLOOR THERAPY FOR PROLAPSE OR VAHID. SX FOR BLADDER CA AUGUST 2023. NO CHEMO OR RADIATION. CYSTOSCOPY 07/09/24 - NORMAL PER PATIENT REPORT WITH FOLLOW SCHEDULED IN A YEAR. Treatment this episode: NONE. STATES SHE HAS STARTED HAVING INFLAMMATION SO STOPPED THE ESTRODIAL CREAM AND IS GOING TO TALK TO DR. SUBRAMANIAN. STATES THE INFLAMMATION STARTED AFTER PAP TEST 07/03/24. STARTED CREAM AFTER PAP. STATES SHE CANCELLED THE TRANSVAGINAL US ORDERED BECAUSE OF THE IRRITATION/INFLAMMATION SHE IS HAVING. Gait: NORMAL BUT REPORTS INCREASED PRESSURE WITH WALKING. How long can you delay the need to urinate: ABOUT 1 HOUR. DENIES URINARY LEAKING TRYING TO MAKE IT TO THE BATHROOM. Prolapse (Falling out feeling): YES (BLADDER AND UTERUS PROLAPSE DX PER PATIENT) Frequency of Urination: ABOUT 5 TIMES DURING THE DAY. Ability to stop urine flow: PARTIALLY - ALMOST COMPLETELY. Ability to initiate urine stream: NO Dyspareunia: NO (STATES SHE HAS TALKED WITH HER DOCTORS ABOUT DISCOMFORT DUE TO DRYNESS) Bowel Incontinence: NO Unexplained weight loss: NO PMH/Recent major surgery: High Cholesterol. Objective Objective: Sitting/Standing Posture: MILD ANTERIOR PELVIC TILT IN STANDING. NO RELEVANT LUMBAR LATERAL SHIFT. SLOUCHED IN SITTING. Active Correction of posture: ABLE TO PARTIALLY CORRECT. DOES NOT MAINTAIN. Other Observations: INDEP GAIT AND TRANSFERS. Sensory deficit: ART LE LIGHT TOUCH SENSATION GROSSLY INTACT AND SYMMETRICAL ROM deficit: ART HIP IR/ER, HIP FLEXOR, AND HIP ADDUCTOR TIGHTNESS. MILD HS AND CALF TIGHTNESS. Motor deficit: ART LE STRENGTH GROSSLY 5/5 WITH MMT'ING. PATIENT COMMUNICATES A GOOD UNDERSTANDING OF HOW TO CONTRACT HER PELVIC FLOOR WITH CUEING BUT WEAKNESS EVIDENT WITH ONLY ABLE TO PERFORM 1-2 REPS X 3-4 SEC WITHOUT GLUT AND ABDOMINAL COMPENSATIONS. PATIENT ALSO REQUIRING CUEING FOR PROPER BREATHING TECHNIQUE. Reflexes: ART LE DTR'S 2+ Dural Signs: NEGATIVE ART LE'S. Lumbar mvmt loss: flex - MIN ext - MOD R SG - MOD L SG - MOD PATIENT DENIES PAIN WITH LUMBAR ROM TESTING. Core strength: FAIR Palpation: NO ACUTE LUMBAR OR HIP PAIN. INTERNAL MANUAL PELVIC FLOOR TESTING AND PALPATION NOT PERFORMED DUE TO PATIENT C/O IRRITATION FROM RECENT OBGYN PELVIC EXAM AND/OR CREAM AND NOT WANTING TO COMPLICATE IT. SHE HAS ALSO CANCELLED HER TRANSVAGINAL US. THIS PT ENCOURAGED HER TO NOTIFY HER ORDERING PHYSICIAN. FUNCTIONAL SCREEN: Incontinence Impact Questionnaire Score: 3 Urogenital Distress Inventory Score: 10 Goals Goal 1:: INCREASE PELVIC FLOOR STRENGTH FOR BETTER ORGAN SUPPORT AND IMROVE URINARY INCONTINENCE Goal Time Frame: 8-12 Weeks Goal 2:: IMPROVE PELVIC FLOOR MUSCLE ENDURANCE TO IMPROVE URINARY INCONTINENCE Goal Time Frame: 8-12 Weeks Goal 3:: INCREASE ABDOMINAL/TRUNK AND LE STRENGTH FOR OPTIMAL ORGAN SUPPORT Goal Time Frame: 8-12 Weeks Goal 4:: PATIENT WILL APPROPRIATELY MANAGE CHANGES IN INTRAABDOMINAL PRESSURE WITH APPROPRIATE PELVIC FLOOR MUSCLE ACTIVATION AND BREATHING TECHNIQUES. Goal Time Frame: 4-6 Weeks Goal 5:: PATIENT WILL BE INDEP WITH A HEP/HOME INSTRUCTIONS FOR CONTINUED IMPROVEMENT ONCE FORMAL PHYSICAL THERAPY CONCLUDES. Goal Time Frame: 8-12 Weeks Rehabilitation Potential Physical Therapy Diagnosis: CORE AND LE STIFFNESS AND WEAKNESS. SIGNS OF PELVIC FLOOR WEAKNESS WITH SYMPTOMS OF PROLAPSE AND VAHID. Rehabilitation Potential: Good Anticipated Interventions Patient/Client Instruction: Educate patient on: Condition, Plan of Care and Risk Factors For the Purpose of:: To improve self management Therapeutic Exercise to Include: Strength training, Endurance training, Body mechanics, Postural training and Flexibilty training For the Purpose of:: To improve muscle performance and motor function, To improve ability of physical actions for home/community/work/leisure, To increase flexibility/ROM and To improve self management Text: Thank you for the opportunity to evaluate your patient. For Medicare and Medicare HMO plans, please review the plan of care and approve it. It will need to be FAXED BACK to us at [phone] for Medicare purposes. For Medicare only, by signing this I certify the plan of care. Please let me know if there are questions or concerns regarding this plan of care. Physician Signature: Date:
== END 2024-09-24 19:00 | disposition home or self-care (01) ==
LOC: PT 09:00
PROVIDERS: PCP Family Medicine; Referring Provider Urology; Visit Provider Urology
DX: N39.3 Stress incontinence (female) (male) (principal); N81.2 Incomplete uterovaginal prolapse
CPT/HCPCS: 97162; 97530

== ENCOUNTER → 2024-10-22 | Outpatient (CLI) | payer MEDICARE, SELFPAY ==
--- NOTE | 2024-10-22 13:53 | US_ITS ---
PROCEDURE: TRANSVAGINAL NON- 10/22/2024 REASON FOR EXAM: HISTORY OF UTERINE POLYP TECHNIQUE: Transvaginal pelvic ultrasound. Color and spectral doppler analysis of the ovaries. COMPARISON: Pelvic ultrasound 08/29/2018 and 05/14/2023 FINDINGS: Measurements: Uterus: 8.0 x 3.9 x 4.8 cm for volume of 78.6 mL Endometrial Thickness: 0.4 cm Right Ovary: 2.7 x 1.9 x 1.7 cm for volume of 4.4 mL Left Ovary: Not visualized due to shadowing bowel gas . Uterus: Anteverted. Slightly heterogeneous echotexture, similar to prior. Evaluation of the uterine fundus is limited due to shadowing. Right ovary: Normal size and echotexture. Left ovary: Not visualized due to shadowing bowel gas Cul-de-sac: No free intraperitoneal fluid identified. DOPPLER: Color Doppler: Normal color flow doppler signal at both ovaries. Spectral Doppler: Normal arterial inflow and venous outflow signal at both ovaries. US/Transvaginal Non- IMPRESSION: Shadowing limits evaluation of the uterine fundus and left ovary. Otherwise un remarkable exam. Endometrial stripe measures 0.4 cm in thickness. Reading Location: [id number]
--- NOTE | 2024-10-22 13:53 | BD_ITS ---
PROCEDURE: DEXA BONE DENSITY STUDY 10/22/2024 REASON FOR EXAM: POSTMENOPAUSAL F, age 69 y/o . TECHNIQUE: DXA scan of sites with data reported below. Scanner utilized: [employer] Leather W. REFERENCE LINKS: [facility] Adult Positions COMPARISON: DEXA scan on 10/04/2020 FINDINGS: BMD and T-SCORES Lumbar spine: 1.030 g/cm2, T-score -0.2 Levels: L1 through L4 Change from prior: Dissimilar scan types/analysis methods, showing. Left femoral neck: 0.732 g/cm2, T-score -1.1 Femoral neck comparison data not recommended for monitoring change. Prior T-score -0.8 Left total hip: 1.001 g/cm2, T-score 0.5 Change from prior: Dissimilar scan types/analysis methods, showing. Right femoral neck: 0.774 g/cm2, T-score -0.7 Femoral neck comparison data not recommended for monitoring change. Prior T-score -0.4 Right total hip: 0.989 g/cm2, T-score 0.4 Change from prior: Dissimilar scan types/analysis methods, showing The World Health Organization has defined the following categories based on bone density: Normal bone density: T-score equal to or greater than -1.0 Osteopenia: T-score between -1.0 and -2.5 Osteoporosis: T-score equal to or less than -2.5 FRAX (or Comparable) Fracture Risk Assessment: 10 Year Probability of Fracture: Major Osteoporotic Fracture: 8.7% Hip Fracture: 1.0% (Note: FRAX is not to be reported in setting of normal range bone density, osteoporosis on DEXA, known history of osteoporosis, prior osteoporotic hip or vertebral fracture, or for any patient undergoing pharmacological treatment for bone loss.) The National Osteoporosis Foundation (NOF) recommends pharmacological treatment for patients with a FRAX 10-year risk of 3% or higher for a hip fracture, or 20% or higher for a major osteoporotic fracture, to prevent osteoporosis and reduce fracture risk. The patient does not meet the pharmacological treatment recommendations for prevention of osteoporosis. BD/Dexa Bone Density Study IMPRESSION: OSTEOPENIA. Reading Location: [id number]
--- NOTE | 2024-10-22 13:53 | BI_ITS ---
EXAM: SCRN MAMM (CAD)W/OLIVIA BILAT DATE: 10/22/2024 CLINICAL HISTORY: F, Age 69 y/o , SCREENING MAMMOGRAM BREAST CANCER RISK ASSESSMENT: Na TECHNIQUE: Bilateral screening digital breast tomosynthesis with 2D and 3D images. Computer aided detection. COMPARISON: Prior exam(s) were compared FINDINGS: TISSUE DENSITY: The breast tissue is heterogenously dense, which may obscure small masses. Bilateral Breast Mammographic Findings: No suspicious masses, calcifications or other abnormalities are identified. BI/SCRN MAMM (CAD)W/OLIVIA BILAT IMPRESSION: OVERALL FINAL ASSESSMENT: BIRADS 1 NEGATIVE RECOMMENDATION: Routine annual follow-up in 1 Year A letter with findings and recommendations will be mailed to the patient. Reading Location: [id number]
== END | disposition home or self-care (01) ==
PROVIDERS: PCP Family Medicine; Referring Provider Obstetrics & Gynecology; Visit Provider Obstetrics & Gynecology
DX: C67.9 Malignant neoplasm of bladder, unspecified (principal); N84.1 Polyp of cervix uteri; Z78.0 Asymptomatic menopausal state; Z12.31 Encounter for screening mammogram for malignant neoplasm of breast; M85.88 Other specified disorders of bone density and structure, other site
CPT/HCPCS: 76830; 77063; 77067; 77080